=== PATIENT | male | born 1955 | race African-American/Black ===

== ENCOUNTER → 2020-07-04 | Outpatient (CLI) | payer MEDICARE ==
[2020-07-04 10:49] LABS: ANION GAP 9 (6-14); BLOOD UREA NITROGEN 16 mg/dL (8-26); CALCIUM 9.7 mg/dL (8.5-10.1); CARBON DIOXIDE 31 mmol/L (21-32); CHLORIDE 101 mmol/L (98-107); CREATININE 1.1 mg/dL (0.7-1.3); DIG 1.7 ng/dL (0.9-2.0); GFR 81.3; GLUCOSE 166 mg/dL (70-99); POTASSIUM 4.8 mmol/L (3.5-5.1); SODIUM 141 mmol/L (136-145)
== END ==
LOC: LAB 08:40
PROVIDERS: ATTEND Internal Medicine Cardiovascular Disease
DX: I48.21 Permanent atrial fibrillation (principal)
CPT/HCPCS: 36415; 80048; 80162

== ENCOUNTER → 2020-07-04 | Outpatient (CLI) | payer MEDICARE ==
[2020-07-04 10:57] LABS: ALBUMIN 3.7 g/dL (3.4-5.0); ALBUMIN/GLOBULIN RATIO 0.8 (1.0-1.7); CALCIUM 9.4 mg/dL (8.5-10.1); CREATININE 1.1 mg/dL (0.7-1.3); GFR 81.3; TOTAL BILIRUBIN 0.6 mg/dL (0.2-1.0); TOTAL PROTEIN 8.1 g/dL (6.4-8.2)
[2020-07-04 11:01] LABS: BASO % 1 % (0-3); EOS # 0.2 x10^3/uL (0.0-0.7); EOS % 3 % (0-3); LYMPH # 1.4 x10^3/uL (1.0-4.8); LYMPH % 21 % (24-48); MEAN CORPUSCULAR HEMOGLOBIN 32 pg (25-35); MEAN CORPUSCULAR HGB CONC 32 g/dL (31-37); MEAN CORPUSCULAR VOLUME 99 fL (79-100); MONO # 0.7 x10^3/uL (0.0-1.1); MONO % 10 % (0-9); NEUT # 4.3 x10^3uL (1.8-7.7); NEUT % 65 % (31-73); PLATELET COUNT 267 x10^3/uL (140-400); RED BLOOD COUNT 4.46 x10^6/uL (4.30-5.70); RED CELL DISTRIBUTION WIDTH 17.7 % (11.5-14.5); WHITE BLOOD COUNT 6.6 x10^3/uL (4.0-11.0)
[2020-07-04 11:08] LABS: BACTERIA,URINE 0 /HPF (0-FEW); BILIRUBIN,URINE NEG (NEG); CLARITY,URINE CLEAR; COLOR,URINE YELLOW; GLUCOSE,URINE NEG (NEG); NITRITE,URINE NEG (NEG); RBC,URINE 0 /HPF (0-2); SQUAMOUS EPITHELIAL CELL,UR MANY /LPF; UROBILINOGEN,URINE 0.2 mg/dL (0.2 mg/dL); WBC,URINE OCC /HPF (0-4)
[2020-07-05 00:15] LABS: HEMOGLOBIN A1C 5.7 % (4.8-5.6)
[2020-07-05 14:23] LABS: FREE PSA/PSA RATIO 16.7 % (.); PSA FREE 0.1 ng/mL; PSA TOTAL 0.6 ng/mL (0.0-4.0)
== END ==
LOC: LAB 08:34
PROVIDERS: ATTEND Family Medicine
DX: I48.0 Paroxysmal atrial fibrillation (principal)
CPT/HCPCS: 36415; 80053; 80061; 81001; 82553; 83036; 83880; 84153; 84154; 84484; 85025; 85379

== ENCOUNTER 2020-08-11 09:39 | Inpatient (IN) | payer MEDICARE ==
[~2020-08-11] VITALS: Ht 188 cm; Wt 159.3 kg
--- NOTE | 2020-08-11 10:19 | EKG ---
[address] [address] Test Date: 2020-08-11 Test Time: 10:03:53 Pat Name: ENRIQUE ISAAC Department: Room: Gender: M [employer]: : [id number] Requested By: IFEANYI HERNANDEZ Order Number: [id number] Reading MD: Measurements Intervals [place] Rate: 81 P: MO: QRS: -19 QRSD: 62 T: 24 QT: 376 QTc: 437 Interpretive Statements IRREGULAR RHYTHM, NO P-WAVE FOUND LOW LIMB LEAD VOLTAGE NO SPECIFIC ECG ABNORMALITIES RI6.02 No previous ECG available for comparison
--- NOTE | 2020-08-11 10:23 | PHYS DOC ---
Past History Past Medical History: A-Fib, Anxiety, CAD, CHF, Depression, Diabetes, DVT, High Cholesterol, Heart Disease, Hypertension Additional Past Medical Histor: PE Past Surgical History: Other Additional Past Surgical Histo: Thrombectomy Alcohol Use: Occasionally General Adult EDM: Chief Complaint: MULTIPLE COMPLAINTS HPI: HPI: 64-year-old male presents with shortness of breath and increased swelling. Patient has CHF at baseline for which he takes 2 different diuretics. He has had an increase in his lower leg swelling over the last several days. He also has gained about 25 pounds. Patient tells me that he is short of breath especially with activity. His legs are so edematous its difficult to get up and around. He denies chest pain or diaphoresis. He has been taking his medications. He stopped his digoxin and restarted it 2 weeks ago. He thinks he started to have increased swelling after he stopped the digoxin but it has not gone down since restarting. It is also gotten worse. He has no other complaints this time. Review of Systems: Review of Systems: Constitutional: Denies fever or chills Eyes: Denies change in visual acuity HENT: Denies nasal congestion or sore throat Respiratory: shortness of breath Cardiovascular: Denies chest pain or edema GI: Denies abdominal pain, nausea, vomiting, bloody stools or diarrhea : Denies dysuria Musculoskeletal: Denies back pain or joint pain Integument: Denies rash Neurologic: Denies headache, focal weakness or sensory changes Endocrine: Denies polyuria or polydipsia Lymphatic: Denies swollen glands Psychiatric: Denies depression or anxiety Allergies: Allergies: Allergies Coded Allergies Type Severity Reaction Last Updated Verified No Known Drug Allergies 08/11/20 No Physical Exam: PE: Constitutional: Well developed, well nourished, morbidly obese, no acute distress, non-toxic appearance. [] HENT: Normocephalic, atraumatic, bilateral external ears normal, oropharynx moist, no oral exudates, nose normal. [] Eyes: PERRLA, EOMI, conjunctiva normal, no discharge. [] Neck: Normal range of motion, no tenderness, supple, no stridor. [] Cardiovascular:Heart rate regular rhythm, no murmur [] Lungs & Thorax: Bilateral breath sounds clear to auscultation [] Abdomen: Bowel sounds normal, soft, no tenderness, no masses, no pulsatile masses. [] Skin: Warm, dry, no erythema, no rash. [] Back: No tenderness, no CVA tenderness. [] Extremities: No tenderness, no cyanosis, no clubbing, ROM intact, 4+ pitting edema the bilateral lower extremities to the waist. [] Neurologic: Alert and oriented X 3, normal motor function, normal sensory function, no focal deficits noted. [] Psychologic: Affect normal, judgement normal, mood normal. [] Current Patient Data: Vital Signs: Vital Signs Date Time Temp Pulse Resp B/P (MAP) Pulse Ox O2 Delivery O2 Flow Rate FiO2 08/11/20 09:45 97.9 83 27 127/64 (85) 96 Room Air EKG: EKG: [] Radiology/Procedures: Radiology/Procedures: [] Impressions: EXAM: AP View of the chest DATE: 08/11/2020 10:25 AM INDICATION: Reason: SOB / Spl. Instructions: / History: COMPARISON: No Prior FINDINGS: Mild cardiomegaly. Patchy opacities right lung base. Trace left pleural effusion . No pneumothorax. IMPRESSION: 1. Patchy opacities right lung base may represent atelectasis. Developing consolidation is not entirely excluded. 2. Mild cardiomegaly. Electronically signed by: Toño Lester MD (08/11/2020 10:45 AM) [facility] DICTATED AND SIGNED BY: TOÑO LESTER MD DATE: 08/11/20 1044 CC: IFEANYI HERNANDEZ DO; CORY JIN MD ~MTH0 0 Heart Score: C/O Chest Pain: N/A Risk Factors: Risk Factors: DM, Current or recent (<one month) smoker, HTN, HLP, family history of CAD, obesity. Risk Scores: Score 0 - 3: 2.5% MACE over next 6 weeks - Discharge Home Score 4 - 6: 20.3% MACE over next 6 weeks - Admit for Clinical Observation Score 7 - 10: 72.7% MACE over next 6 weeks - Early Invasive Strategies Course & Med Decision Making: Course & Med Decision Making Pertinent Labs and Imaging studies reviewed. (See chart for details) The patient's EKG is unremarkable. He does have A. fib rate controlled. His labs are unremarkable except for an elevated proBNP. His troponin is negative. His chest x-ray shows some atelectasis but cannot rule out early pneumonia. Based on my exam the patient has significant fluid overload. I have ordered 1 mg of Bumex IV. I will admit him to the hospital for diuresis and further management of his shortness of breath. I spoke with Dr. Jin and he has accepted the patient for admission. [] Dragon Disclaimer: Dragon Disclaimer: This electronic medical record was generated, in whole or in part, using a voice recognition dictation system. Departure Departure: Impression: Primary Impression: CHF exacerbation Qualified Codes: I50.23 - Acute on chronic systolic (congestive) heart f ailure Disposition: ADMITTED INPATIENT Condition: STABLE Referrals: CORY JIN MD (PCP) IFEANYI HERNANDEZ DO Aug 11, 2020 10:23
[2020-08-11] MEDS ORDERED: BUMETANIDE 1 MG/4 ML VIAL. IVP STA (10:38)
--- NOTE | 2020-08-11 10:47 | RAD ---
EXAM: AP View of the chest DATE: 08/11/2020 10:25 AM INDICATION: Reason: SOB / Spl. Instructions: / History: COMPARISON: No Prior FINDINGS: Mild cardiomegaly. Patchy opacities right lung base. Trace left pleural effusion. No pneumothorax. IMPRESSION: 1. Patchy opacities right lung base may represent atelectasis. Developing consolidation is not entir cleopatra excluded. 2. Mild cardiomegaly. Electronically signed by: Toño Lester MD (08/11/2020 10:45 AM) MARISSA
[2020-08-11 10:53] LABS: BASO % 0 % (0-3); EOS # 0.2 x10^3/uL (0.0-0.7); EOS % 3 % (0-3); HEMATOCRIT 39.4 % (39.0-53.0); HEMOGLOBIN 12.7 g/dL (13.0-17.5); LYMPH # 1.2 x10^3/uL (1.0-4.8); LYMPH % 13 % (24-48); MEAN CORPUSCULAR HEMOGLOBIN 31 pg (25-35); MEAN CORPUSCULAR HGB CONC 32 g/dL (31-37); MEAN CORPUSCULAR VOLUME 97 fL (79-100); MONO # 0.8 x10^3/uL (0.0-1.1); MONO % 8 % (0-9); NEUT # 6.9 x10^3uL (1.8-7.7); NEUT % 76 % (31-73); PLATELET COUNT 221 x10^3/uL (140-400); RED BLOOD COUNT 4.07 x10^6/uL (4.30-5.70); RED CELL DISTRIBUTION WIDTH 17.3 % (11.5-14.5); WHITE BLOOD COUNT 9.1 x10^3/uL (4.0-11.0)
[2020-08-11 10:55] LABS: CALCIUM 8.7 mg/dL (8.5-10.1); CREATININE 1.1 mg/dL (0.7-1.3); GFR 81.3; POTASSIUM 5.1 mmol/L (3.5-5.1)
[2020-08-11 11:01] LABS: ALBUMIN 3.2 g/dL (3.4-5.0); ALBUMIN/GLOBULIN RATIO 0.8 (1.0-1.7); TOTAL BILIRUBIN 0.5 mg/dL (0.2-1.0); TOTAL PROTEIN 7.2 g/dL (6.4-8.2)
[2020-08-11] MEDS ORDERED: ONDANSETRON PF 4 MG/2 ML VIAL. IVP PRN (11:45)
[2020-08-11] MEDS ORDERED: HYDROmorphone PF 1 MG/ML DISP.SYRIN IV PRN (11:45)
[2020-08-11] MEDS ORDERED: TRAZ-125 PO (15:34)
[2020-08-11] MEDS ORDERED: SITA50TA PO (15:34)
[2020-08-11] MEDS ORDERED: LISI-517 PO (15:34)
[2020-08-11] MEDS ORDERED: METO50TA6 PO (15:34)
[2020-08-11] MEDS ORDERED: DIGO125T17 PO (15:34)
[2020-08-11] MEDS ORDERED: SPIR25TA5 PO (15:34)
[2020-08-11] MEDS ORDERED: DABI150C PO (15:34)
[2020-08-11] MEDS ORDERED: METF500T16 PO (15:34)
[2020-08-11] MEDS ORDERED: CARV25TA2 PO (15:34)
[2020-08-11] MEDS ORDERED: FURO40TA4 PO (15:34)
[2020-08-11] MEDS ORDERED: PRAV40TA2 PO (15:34)
[2020-08-11] MEDS: FUROSEMIDE 20 MG/2 ML VIAL IVP SCH (17:38)
[2020-08-11] MEDS: metFORMIN 500 MG TABLET PO SCH (17:38)
[2020-08-11 19:00] VITALS: BP 120/84
[2020-08-11] MEDS: METOPROLOL TART IMMED RELEASE 50 MG TABLET PO SCH (21:41)
[2020-08-11] MEDS: DABIGATRAN ETEXILATE 150 MG CAPSULE. PO SCH (21:41)
[2020-08-11] MEDS: ATORVASTATIN CALCIUM 10 MG TABLET. PO SCH (21:42)
[2020-08-11] MEDS: SPIRONOLACTONE 25 MG TABLET PO SCH (21:42)
[2020-08-11] MEDS: traZODone 100 MG TABLET. PO SCH (21:42)
[2020-08-11 23:26] LABS: BILIRUBIN,URINE NEG (NEG); CLARITY,URINE CLEAR; COLOR,URINE YELLOW; GLUCOSE,URINE NEG (NEG)
[2020-08-11 23:27] LABS: BACTERIA,URINE 0 /HPF (0-FEW); NITRITE,URINE NEG (NEG); RBC,URINE 0 /HPF (0-2); SQUAMOUS EPITHELIAL CELL,UR OCC /LPF; UROBILINOGEN,URINE 0.2 mg/dL (0.2 mg/dL); WBC,URINE 0 /HPF (0-4)
[2020-08-11 23:31] VITALS: BP 134/80
[2020-08-12 05:53] VITALS: BP 105/67
[2020-08-12] MEDS: DABIGATRAN ETEXILATE 150 MG CAPSULE. PO SCH ×2 (09:11→20:58)
[2020-08-12] MEDS: METOPROLOL TART IMMED RELEASE 50 MG TABLET PO SCH ×2 (09:11→20:58)
[2020-08-12] MEDS: metFORMIN 500 MG TABLET PO SCH ×2 (09:13→17:22)
[2020-08-12] MEDS: DIGOXIN 125 MCG TABLET PO SCH (09:13)
[2020-08-12] MEDS: LINAGLIPTIN 5 MG TABLET PO SCH (09:14)
[2020-08-12] MEDS: SPIRONOLACTONE 25 MG TABLET PO SCH ×2 (09:14→20:58)
[2020-08-12] MEDS: LISINOPRIL 5 MG TABLET. PO SCH (09:16)
[2020-08-12] MEDS: FUROSEMIDE 20 MG/2 ML VIAL IVP SCH (09:17)
[2020-08-12] MEDS ORDERED: ACETAMINOPHEN/CODEINE 300/30MG TABLET PO PRN (10:45)
[2020-08-12 11:47] VITALS: BP 108/76
[2020-08-12 13:05] LABS: CALCIUM 8.9 mg/dL (8.5-10.1); CREATININE 1.1 mg/dL (0.7-1.3); GFR 81.3; POTASSIUM 4.3 mmol/L (3.5-5.1)
[2020-08-12] MEDS: FUROSEMIDE 40 MG/4 ML VIAL IVP SCH (14:37)
[2020-08-12] MEDS ORDERED: HYDROcodone/APAP 5/325MG 1 TAB TABLET PO PRN ×2 (15:15→15:30)
[2020-08-12] MEDS: HYDROcodone/APAP 5/325MG 1 TAB TABLET PO PRN (16:14)
[2020-08-12 16:22] VITALS: BP 136/85
[2020-08-12] MEDS: CARVEDILOL 12.5 MG TABLET PO SCH (18:39)
[2020-08-12 19:25] VITALS: BP 108/75
[2020-08-12] MEDS: traZODone 100 MG TABLET. PO SCH (20:58)
[2020-08-12] MEDS: ATORVASTATIN CALCIUM 10 MG TABLET. PO SCH (20:58)
[2020-08-13 05:45] VITALS: BP 105/73
[2020-08-13 06:10] LABS: HEMOGLOBIN A1C 6.1 % (4.8-5.6)
[2020-08-13 06:50] LABS: CALCIUM 8.9 mg/dL (8.5-10.1); GFR 90.7; POTASSIUM 3.8 mmol/L (3.5-5.1)
--- NOTE | 2020-08-13 09:28 | PDOC2 ---
CARDIAC CONSULT DATE OF CONSULT DOS: DATE: 08/13/20 TIME: 09:26 REASON FOR CONSULT Reason for Consult CHF REFERRING PHYSICIAN Referring Physician Dr. Ahumada SOURCE Source: Chart review, Patient HPI History of Present Illness This is a 64 yo male who presented secondary to shortness of breath and increased edema. Patient reports LE have been swollen for the last month. Follows with [facility]. Reports digoxin was discontinued last month and then has has progressive fluid retention since that point. Has history of chronic AFIB. Denies any palpitations. Shortness of breath has improved, but LE edema has persists. Requesting different diuretic as her does not feel Lasix has been effective. He denies any chest pain, palpitations, dizziness, diaphoresis, or nausea/vomiting. PAST MEDICAL HISTORY Cardiovascular: AFIB, CHF, HTN, hyperipidemia Heme/Onc: Other (DVT, PE) Psych: Anxiety, Depression Endocrine: Diabetes PAST SURGICAL HISTORY Past Surgical History: No pertinent history FAMILY HISTORY Family History: Hypertension SOCIAL HISTORY Smoke: No ALCOHOL: none Drugs: None Lives: with Family CURRENT MEDICATIONS Current Medications Current Medications Bumetanide (Bumex) 1 mg 1X STAT IVP Last administered on 08/11/20at 10:56; Start 08/11/20 at 10:38; Stop 08/11/20 at 10:43; Status DC Ondansetron HCl (Zofran) 4 mg PRN Q4HRS PRN IVP NAUSEA/VOMITING; Start 08/11/20 at 11:45; Stop 08/12/20 at 11:44; Status DC Hydromorphone HCl (Dilaudid) 0.5 mg PRN Q2HR PRN IV PAIN; Start 08/11/20 at 11:45; Stop 08/12/20 at 11:44; Status UNV Dabigatran (Pradaxa) 150 mg BID PO Last administered on 08/12/20at 20:58; Start 08/11/20 at 21:00 Digoxin (Lanoxin) 125 mcg DAILY PO Last administered on 08/12/20at 09:13; Start 08/12/20 at 09:00 Lisinopril (Prinivil) 5 mg DAILY PO Last administered on 08/12/20at 09:16; Start 08/12/20 at 09:00 Metformin HCl (Glucophage) 500 mg BIDWMEALS PO Last administered on 08/12/20at 17:22; Start 08/11/20 at 18:00 Metoprolol Tartrate (Lopressor) 50 mg BID PO Last administered on 08/12/20at 20:58; Start 08/11/20 at 21:00 Spironolactone (Aldactone) 25 mg BID PO Last administered on 08/12/20at 20:58; Start 08/11/20 at 21:00 Trazodone HCl (Desyrel) 100 mg QHS PO Last administered on 08/12/20at 20:58; Start 08/11/20 at 21:00 Carvedilol (Coreg) 25 mg BIDWMEALS PO Last administered on 08/12/20at 18:39; Start 08/12/20 at 18:00 Atorvastatin Calcium (Lipitor) 10 mg QHS PO Last administered on 08/12/20at 20:58; Start 08/11/20 at 21:00 Linagliptin (Tradjenta) 5 mg DAILY PO Last administered on 08/12/20at 09:14; Start 08/12/20 at 09:00 Furosemide (Lasix) 20 mg BID92 IVP Last administered on 08/12/20at 09:17; Start 08/11/20 at 17:30; Stop 08/12/20 at 14:00; Status DC Acetaminophen/ Codeine Phosphate (Tylenol #3) 2 tab PRN QID PRN PO MILD PAIN 1- 3 Last administered on 08/12/20at 11:25; Start 08/12/20 at 10:45 Furosemide (Lasix) 40 mg BID92 IVP Last administered on 08/12/20at 14:37; Start 08/12/20 at 14:00 Acetaminophen/ Hydrocodone Bitart (Lortab 5/325) 1-2 tabs for pain PRN Q6HRS PRN PO MODERATE TO PERSISTANT PAIN; Start 08/12/20 at 15:15; Stop 08/12/20 at 15:22; Status DC Acetaminophen/ Hydrocodone Bitart (Lortab 5/325) 1 tab PRN Q6HRS PRN PO MODERATE TO PERSISTANT PAIN Last administered on 08/12/20at 16:14; Start 08/12/20 at 15:22 Acetaminophen/ Hydrocodone Bitart (Lortab 5/325) 2 tab PRN Q6HRS PRN PO MOD TO PERSISTANT PAIN; Start 08/12/20 at 15:30 Active Scripts Active Reported Pradaxa (Dabigatran Etexilate Mesylate) 150 Mg Capsule 1 Cap PO BID Januvia (Sitagliptin Phosphate) 50 Mg Tablet 1 Tab PO DAILY Digoxin 125 Mcg Tablet 125 Mcg PO DAILY Lisinopril 5 Mg Tablet 1 Tab PO DAILY Metoprolol Tartrate 50 Mg Tablet 1 Tab PO BID Pravastatin Sodium 40 Mg Tablet 1 Tab PO QHS Metformin Hcl 500 Mg Tablet 1 Tab PO BID Trazodone Hcl 100 Mg Tablet 1 Tab PO QHS Furosemide 40 Mg Tablet 1 Tab PO BID92 Carvedilol 25 Mg Tablet 25 Mg PO BIDWMEALS Spironolactone 25 Mg Tablet 1 Tab PO BID ALLERGIES Allergies: Coded Allergies: No Known Drug Allergies (Unverified , 08/11/20) ROS Review of Systems 14 point ROS conducted with pertinent positives noted above in hPI PHYSICAL EXAM General: Alert, Oriented X3, Cooperative HEENT: Atraumatic Lungs: Other (diminished bases) Heart: Other (IRRR; tele AFIB, rate 110) Abdomen: Soft, Other (obese ) Extremities: Other (2-3+ bilateral LE edema ) Neuro: Normal speech, Sensation intact Psych/Mental Status: Mental status NL, Mood NL MUSCULOSKELETAL: Osteoarthritic changes both hands VITALS Vital Signs Vital Signs Date Time Temp Pulse Resp B/P (MAP) Pulse Ox O2 Delivery O2 Flow Rate FiO2 08/13/20 05:45 97.7 83 18 105/73 (84) 93 Room Air LABS LABS Laboratory Tests Test 08/11/20 10:30 08/11/20 15:23 08/11/20 18:11 08/11/20 22:30 White Blood Count 9.1 x10^3/uL (4.0-11.0) Red Blood Count 4.07 x10^6/uL (4.30-5.70) Hemoglobin 12.7 g/dL (13.0-17.5) Hematocrit 39.4 % (39.0-53.0) Mean Corpuscular Volume 97 fL (79-100) Mean Corpuscular Hemoglobin 31 pg (25-35) Mean Corpuscular Hemoglobin Concent 32 g/dL (31-37) Red Cell Distribution Width 17.3 % (11.5-14.5) Platelet Count 221 x10^3/uL (140-400) Neutrophils (%) (Auto) 76 % (31-73) Lymphocytes (%) (Auto) 13 % (24-48) Monocytes (%) (Auto) 8 % (0-9) Eosinophils (%) (Auto) 3 % (0-3) Basophils (%) (Auto) 0 % (0-3) Neutrophils # (Auto) 6.9 x10^3uL (1.8-7.7) Lymphocytes # (Auto) 1.2 x10^3/uL (1.0-4.8) Monocytes # (Auto) 0.8 x10^3/uL (0.0-1.1) Eosinophils # (Auto) 0.2 x10^3/uL (0.0-0.7) Basophils # (Auto) 0.0 x10^3/uL (0.0-0.2) Sodium Level 140 mmol/L (136-145) Potassium Level 5.1 mmol/L (3.5-5.1) Chloride Level 104 mmol/L (98-107) Carbon Dioxide Level 31 mmol/L (21-32) Anion Gap 5 (6-14) Blood Urea Nitrogen 12 mg/dL (8-26) Creatinine 1.1 mg/dL (0.7-1.3) Estimated GFR (Cockcroft-Gault) 81.3 BUN/Creatinine Ratio 11 (6-20) Glucose Level 161 mg/dL (70-99) Hemoglobin A1c 6.1 % (4.8-5.6) Calcium Level 8.7 mg/dL (8.5-10.1) Total Bilirubin 0.5 mg/dL (0.2-1.0) Aspartate Amino Transf (AST/SGOT) 18 U/L (15-37) Alanine Aminotransferase (ALT/SGPT) 34 U/L (16-63) Alkaline Phosphatase 68 U/L (46-116) Troponin I Quantitative < 0.017 ng/mL (0-0.055) 0.017 ng/mL (0-0.055) 0.022 ng/mL (0-0.055) BR-Rcp-Q-Type Natriuretic Peptide 2318 pg/mL (0-124) Total Protein 7.2 g/dL (6.4-8.2) Albumin 3.2 g/dL (3.4-5.0) Albumin/Globulin Ratio 0.8 (1.0-1.7) Urine Collection Type Unknown Urine Color Yellow Urine Clarity Clear Urine pH 5.5 Urine Specific [place] 1.010 Urine Protein Neg (NEG-TRACE) Urine Glucose (UA) Neg mg/dL (NEG) Urine Ketones (Stick) Neg mg/dL (NEG) Urine Blood Neg (NEG) Urine Nitrite Neg (NEG) Urine Bilirubin Neg (NEG) Urine Urobilinogen Dipstick 0.2 mg/dL (0.2 mg/dL) Urine Leukocyte Esterase Neg (NEG) Urine RBC 0 /HPF (0-2) Urine WBC 0 /HPF (0-4) Urine Squamous Epithelial Cells Occ /LPF Urine Bacteria 0 /HPF (0-FEW) Test 08/12/20 07:15 08/13/20 05:40 Sodium Level 141 mmol/L (136-145) 139 mmol/L (136-145) Potassium Level 4.3 mmol/L (3.5-5.1) 3.8 mmol/L (3.5-5.1) Chloride Level 101 mmol/L (98-107) 101 mmol/L (98-107) Carbon Dioxide Level 31 mmol/L (21-32) 32 mmol/L (21-32) Anion Gap 9 (6-14) 6 (6-14) Blood Urea Nitrogen 11 mg/dL (8-26) 10 mg/dL (8-26) Creatinine 1.1 mg/dL (0.7-1.3) 1.0 mg/dL (0.7-1.3) Estimated GFR (Cockcroft-Gault) 81.3 90.7 Glucose Level 114 mg/dL (70-99) 174 mg/dL (70-99) Calcium Level 8.9 mg/dL (8.5-10.1) 8.9 mg/dL (8.5-10.1) ECHOCARDIOGRAM Echocardiogram 12/27/19 - 2D + DOPPLER ECHO Interpretation Summary The left ventricular size is normal. Concentric remodeling. The left ventricular systolic function is normal. The ejection fraction by Reddy's biplane method is 62%. There are no segmental wall motion abnormalities The right ventricular size is normal. The right ventricular systolic function is normal. Normal biatrial size. No significant valve disease. Estimated Peak Systolic PA Pressure 26 mmHg No pericardial effusion. No prior for comparison. STRESS TEST Stress Test 12/06/19 - Procedure: D-SPECT MULTI GATED THALLIUM REGADENOSON MPI STRESS TEST SUMMARY/OPINION: This study is normal with no evidence of significant myocardial ischemia. Left ventricular systolic function is normal. There are no high risk prognostic indicators present. The pharmacologic ECG portion of the study is negative for ischemia. There are no prior studies available for comparison. In aggregate the current study is low risk in regards to predicted annual cardiovascular mortality rate. ASSESSMENT/PLAN Assessment/Plan 1. Acute on chronic diastolic CHF; Echo 01/12 with preserved LV systolic function S/p IV diuresis. Requesting alternative to Lasix as he does not feel th is is effective 2. H/o NICM with LVEF previously 25%. LVEF recovered per echo 01/12 as noted above. Follows with Dr.Bhagat SUAD 3. Permanent AFIB; OAC with Pradaxa. Digoxin resumed. Rate remains intermittently elevated. 4. Hypertension; controlled 5. Hyperlipidemia 6. Diabetes, II 7. H/o DVT/PE; chronic OAC 8. Obesity Recommendations Daily weights 2Gm Na diet, 2000cc FR Will try IV Bumex for more aggressive diuresis Convert Coreg to Toprol for better rate control as RVR may be contributing to ac gambell CHF, fluid retention Supportive care ISAURO ORLANDO APRN Aug 13, 2020 09:28
[2020-08-13] MEDS: LINAGLIPTIN 5 MG TABLET PO SCH (09:32)
[2020-08-13] MEDS: metFORMIN 500 MG TABLET PO SCH ×2 (09:32→16:30)
[2020-08-13] MEDS: LISINOPRIL 5 MG TABLET. PO SCH (09:32)
[2020-08-13] MEDS: DABIGATRAN ETEXILATE 150 MG CAPSULE. PO SCH ×2 (09:32→21:50)
[2020-08-13] MEDS: DIGOXIN 125 MCG TABLET PO SCH (09:32)
[2020-08-13] MEDS: METOPROLOL TART IMMED RELEASE 50 MG TABLET PO SCH (09:33)
[2020-08-13] MEDS: SPIRONOLACTONE 25 MG TABLET PO SCH ×2 (09:33→21:50)
[2020-08-13] MEDS: CARVEDILOL 12.5 MG TABLET PO SCH (09:34)
[2020-08-13] MEDS: FUROSEMIDE 40 MG/4 ML VIAL IVP SCH (09:36)
[2020-08-13] MEDS: METOPROLOL SUCC 24HR ER 50 MG TAB.ER.24H. PO SCH (10:00)
[2020-08-13 10:44] VITALS: BP 121/79
[2020-08-13 14:42] VITALS: BP 105/70
[2020-08-13] MEDS: metOLazone 5 MG TABLET PO SCH (14:46)
[2020-08-13] MEDS: BUMETANIDE 1 MG/4 ML VIAL. IVP SCH (14:46)
[2020-08-13 20:05] VITALS: BP 115/80
[2020-08-13] MEDS: ATORVASTATIN CALCIUM 10 MG TABLET. PO SCH (21:50)
[2020-08-13] MEDS: traZODone 100 MG TABLET. PO SCH (21:50)
[2020-08-13] MEDS: HYDROcodone/APAP 5/325MG 1 TAB TABLET PO PRN (21:54)
[2020-08-13 22:29] VITALS: BP 119/75
--- NOTE | 2020-08-14 01:15 | PN ---
SUBJECTIVE: A 64-year-old gentleman admitted with acute on top of chronic diastolic heart failure. The patient has been diuresed. He is feeling somewhat better, able to breathe a little bit easier. The patient denies any chest pain. OBJECTIVE: GENERAL: The patient is otherwise alert and oriented. Speech fluent and spontaneous. LUNGS: Shows some basic very faint rales in the bases, but markedly improved. CARDIOVASCULAR: Basically stable. Cardiology has seen the patient for his AFib, which has been chronic in his heart failure. ABDOMEN: Protuberant. EXTREMITIES: Still show about +2 pitting edema. Pulses noted distally. NEUROLOGIC: He is sedated, stable there. LABORATORY DATA: The patient's electrolytes were all within normal limits. The patient's urine came back was stable. D-dimer was negative. Cardiology made timely suggestions. IMPRESSION: Acute on top of chronic diastolic heart failure, morbid obesity, hyperglycemia, moderate protein malnutrition. PLAN: Continue with diuresis, fluid restriction, and low sodium diet. HAJA/QUANG DR: Vincent TID: [id number]
[2020-08-14 05:45] VITALS: BP 107/74
[2020-08-14] MEDS: metOLazone 5 MG TABLET PO SCH ×2 (08:19→14:05)
[2020-08-14] MEDS: metFORMIN 500 MG TABLET PO SCH ×2 (08:19→17:19)
--- NOTE | 2020-08-14 08:47 | PDOC ---
CARDIO Progress Notes Date & Time Date of Service DATE: 08/14/20 TIME: 08:46 Time of Evaluation 08:46 Subjective Notes increase UOP yesterday and overnight. LE edema better. Vitals Vitals Vital Signs Date Time Temp Pulse Resp B/P (MAP) Pulse Ox O2 Delivery O2 Flow Rate FiO2 08/14/20 05:45 97.7 97 18 107/74 (85) 92 Room Air Weight Weight [ ] Input and Output I.O. Intake and Output 08/14/20 07:00 Intake Total 1420 ml Output Total 300 ml Balance 1120 ml Intake Oral 1420 ml Output Urine Total 300 ml # Voids 2 Laboratory Labs Laboratory Tests Test 08/13/20 05:40 Sodium Level 139 mmol/L (136-145) Potassium Level 3.8 mmol/L (3.5-5.1) Chloride Level 101 mmol/L (98-107) Carbon Dioxide Level 32 mmol/L (21-32) Anion Gap 6 (6-14) Blood Urea Nitrogen 10 mg/dL (8-26) Creatinine 1.0 mg/dL (0.7-1.3) Estimated GFR (Cockcroft-Gault) 90.7 Glucose Level 174 mg/dL (70-99) Calcium Level 8.9 mg/dL (8.5-10.1) Physical Exams HEENT: Neck Supple W Full Motion Chest: Symmetric Lungs: Clear to Auscultation, Other (diminished bases) Abdomen: Soft N/T, Other (obese ) Extremities: Other (bilateral LE edema ) Neurology: alert, oriented, follow commands Assessment Assessment 1. Acute on chronic diastolic CHF; Echo 01/12 with preserved LV systolic function. ^ UOP with combination of Bumex and metolazone 2. H/o NICM with LVEF previously 25%. LVEF recovered per echo 01/12 as noted above. Follows with Dr.Bhagat SUAD 3. Permanent AFIB; OAC with Pradaxa. Digoxin resumed. Rate intermittently elevated. 4. Hypertension; controlled 5. Hyperlipidemia 6. Diabetes, II 7. H/o DVT/PE; chronic OAC 8. Obesity Recommendations 2Gm Na diet, 2000cc FR Daily weights, accurate I and O- d/w RN Ongoing diuresis Continue Toprol for rate control. Will increase for better rate control Supportive care ISAURO ORLANDO APRN Aug 14, 2020 08:47
[2020-08-14] MEDS ORDERED: metOLazone 5 MG TABLET PO ONE (09:30)
[2020-08-14] MEDS: DIGOXIN 125 MCG TABLET PO SCH (09:38)
[2020-08-14] MEDS: LISINOPRIL 5 MG TABLET. PO SCH (09:38)
[2020-08-14] MEDS: LINAGLIPTIN 5 MG TABLET PO SCH (09:38)
[2020-08-14] MEDS: DABIGATRAN ETEXILATE 150 MG CAPSULE. PO SCH ×2 (09:39→21:22)
[2020-08-14] MEDS: METOPROLOL SUCC 24HR ER 50 MG TAB.ER.24H. PO SCH (09:39)
[2020-08-14] MEDS: SPIRONOLACTONE 25 MG TABLET PO SCH ×2 (09:39→21:22)
[2020-08-14] MEDS: BUMETANIDE 1 MG/4 ML VIAL. IVP SCH ×2 (09:40→14:05)
[2020-08-14] MEDS ORDERED: METOPROLOL TARTRATE 5 MG/5 ML VIAL. IV ONE (10:30)
[2020-08-14 10:34] VITALS: BP 131/82
[2020-08-14 15:00] VITALS: BP 115/77
[2020-08-14] MEDS: HYDROcodone/APAP 5/325MG 1 TAB TABLET PO PRN (17:37)
[2020-08-14 17:39] LABS: CALCIUM 9.2 mg/dL (8.5-10.1); GFR 90.7; POTASSIUM 4.2 mmol/L (3.5-5.1)
[2020-08-14 19:38] VITALS: BP 107/71
[2020-08-14] MEDS: ATORVASTATIN CALCIUM 10 MG TABLET. PO SCH (21:22)
[2020-08-14] MEDS: traZODone 100 MG TABLET. PO SCH (21:22)
[2020-08-14 23:29] VITALS: BP 115/80
--- NOTE | 2020-08-15 04:59 | PN ---
SUBJECTIVE: A 64-year-old gentleman in with congestive heart failure. Still needs consistent and considerably more diuresis with IV medications. The patient's metolazone has been increased and he continues to be monitored, his left ejection fraction is only 25%. The patient is followed normally by ____; otherwise the patient continued to be diuresed. OBJECTIVE: VITAL SIGNS: Blood pressure 120/70, respiratory rate 20, pulse 100, afebrile, 96% on room air. GENERAL: The patient is alert and oriented. LUNGS: Diminished throughout, poor movement of air. CARDIOVASCULAR: rhythm. ABDOMEN: Protuberant. EXTREMITIES: +2-3 pitting edema. ASSESSMENT AND PLAN: The patient is diuresing. We will increase his diuresis and cut down . Continue to monitor his fluid restriction and make further evaluation on him as indicated. HAJA/AKIKO/JARVIS DR: Vincent TID: [id number]
[2020-08-15 07:00] VITALS: BP 123/72
[2020-08-15] MEDS: metOLazone 5 MG TABLET PO SCH (08:07)
[2020-08-15] MEDS: metFORMIN 500 MG TABLET PO SCH (08:07)
[2020-08-15] MEDS: SPIRONOLACTONE 25 MG TABLET PO SCH (08:07)
[2020-08-15] MEDS: BUMETANIDE 1 MG/4 ML VIAL. IVP SCH (08:07)
[2020-08-15 08:08] VITALS: BP 123/72
[2020-08-15] MEDS: LISINOPRIL 5 MG TABLET. PO SCH (08:08)
[2020-08-15] MEDS: DIGOXIN 125 MCG TABLET PO SCH (08:08)
[2020-08-15] MEDS: LINAGLIPTIN 5 MG TABLET PO SCH (08:08)
[2020-08-15] MEDS: DABIGATRAN ETEXILATE 150 MG CAPSULE. PO SCH (08:08)
--- NOTE | 2020-08-15 08:42 | PDOC ---
CARDIO Progress Notes Date & Time Date of Service DATE: 08/15/20 TIME: 08:40 Time of Evaluation 08:40 Subjective Notes Urinated significant amount. LE edema better. Vitals Vitals Vital Signs Date Time Temp Pulse Resp B/P (MAP) Pulse Ox O2 Delivery O2 Flow Rate FiO2 08/15/20 08:08 87 123/72 08/15/20 07:00 20 93 Room Air 08/14/20 23:29 98.0 Weight Weight [ ] Input and Output I.O. Intake and Output 08/15/20 07:00 Intake Total 1080 ml Output Total 4400 ml Balance -3320 ml Intake Oral 1080 ml Output Urine Total 4400 ml Laboratory Labs Laboratory Tests Test 08/14/20 06:45 Sodium Level 140 mmol/L (136-145) Potassium Level 4.2 mmol/L (3.5-5.1) Chloride Level 100 mmol/L (98-107) Carbon Dioxide Level 36 mmol/L (21-32) Anion Gap 4 (6-14) Blood Urea Nitrogen 12 mg/dL (8-26) Creatinine 1.0 mg/dL (0.7-1.3) Estimated GFR (Cockcroft-Gault) 90.7 Glucose Level 142 mg/dL (70-99) Calcium Level 9.2 mg/dL (8.5-10.1) Physical Exams HEENT: Neck Supple W Full Motion Chest: Symmetric Lungs: Clear to Auscultation, Other (diminished bases) Heart: irregularly irregular (rate controlled ) Abdomen: Soft N/T, Other (obese ) Extremities: Other (1+ bilateral LE edema ) Neurology: alert, oriented, follow commands Assessment Assessment 1. Acute on chronic diastolic CHF; Echo 01/12 with preserved LV systolic function. Good UOP with combination of Bumex and metolazone 2. H/o NICM with LVEF previously 25%. LVEF recovered per echo 01/12 as noted above. Follows with Dr.Bhagat SUAD 3. Permanent AFIB; OAC with Pradaxa. rate controlled 4. Hypertension; controlled 5. Hyperlipidemia 6. Diabetes, II 7. H/o DVT/PE; chronic OAC 8. Obesity Recommendations Convert Bumex to oral Discussed/encouraged daily weight monitoring at home Continue metoprolol, Digoxin for HR control Pradaxa for stroke prevention Follow up with primary bagger meat upon discharge. ISAURO ORLANDO APRN Aug 15, 2020 08:42
[2020-08-15] MEDS ORDERED: METOPROLOL SUCC 24HR ER 50 MG TAB.ER.24H. PO SCH (09:00)
[2020-08-15] MEDS ORDERED: METO5TAB4 PO (10:52)
[2020-08-15] MEDS ORDERED: METO50TA29 PO (10:52)
[2020-08-15] MEDS ORDERED: BUME2TAB3 PO (10:52)
--- NOTE | 2020-08-15 15:55 | DISCH ---
HOME HEALTH DISCHARGE/MEDS DISCHARGE INFORMATION: Discharge Date: Aug 15, 2020 Final Diagnosis: Problems Medical Problems: (1) CHF exacerbation Status: Acute Condition on Discharge: Stable CODE STATUS: Code Status: Full HOME HEALTH: Face to Face: I certify this patient is under my care and that I, or a nurse practitioner or physician's assistant professor of biochemistry working with me, had a face to face encounter that meets the physician face to face encounter requirements with this patient on August 15, 2020. Medical Condition(s): CHF, COPD, DM, HTN Jail For: Assess Cardiopulm Status, Assess & Educate Safety, Assess/Skilled Observatio, Medication Management Homebound Status Met By: Unsteady balance w/ amb,, Fatigue w/ amb. POST DISCHARGE ORDERS: Activity Instructions for Disc: Activity as tolerated Weight Bearing Status after Di: No restrictions DIET AFTER DISCHARGE: Cardiac CHECKS AFTER DISCHARGE: Checks after discharge: Check blood press - daily, Check blood sugar, ac/hs, Weigh Yourself Daily CERTIFICATION STATEMENT: Certification Statement: Based on the above finding, I certify that this patient is confined to the home and needs intermittent snf care, physical therapy and/or speech therapy, or continues to need occupational therapy.~ This patient is under my care, and I have initiated the establishment of the plan of care.~ This patient will be followed by myself or a community physician who will periodically review the plan of care. DISCHARGE MEDICATIONS: Home Meds Active Scripts Bumetanide (BUMETANIDE) 2 Mg Tablet, 1 TAB PO DAILY for chf, #30 TAB 5 Refills Prov:CORY JIN MD 08/15/20 Metolazone (METOLAZONE) 5 Mg Tablet, 10 MG PO 0830,1330 for chf for 30 Days, #30 TAB 6 Refills Prov:CORY JIN MD 08/15/20 Metoprolol Succinate (METOPROLOL SUCCINATE ( XL )) 50 Mg Tab.er.24h, 150 MG PO DAILY for sfasfasf for 30 Days, #90 TAB.SR 7 Refills Prov:CORY JIN MD 08/15/20 Reported Medications Dabigatran Etexilate Mesylate (PRADAXA) 150 Mg Capsule, 1 CAP PO BID for supplement, #180 CAP 1 Refill 08/11/20 Sitagliptin Phosphate (JANUVIA) 50 Mg Tablet, 1 TAB PO DAILY for diabetes, #30 TAB 5 Refills 08/11/20 Digoxin (DIGOXIN) 125 Mcg Tablet, 125 MCG PO DAILY for AFIB/HEART FAILURE, TAB 08/11/20 Lisinopril (LISINOPRIL) 5 Mg Tablet, 1 TAB PO DAILY for high blood pressure, #30 TAB 5 Refills 08/11/20 Metoprolol Tartrate (METOPROLOL TARTRATE) 50 Mg Tablet, 1 TAB PO BID for high blood pressure, #60 TAB 5 Refills 08/11/20 Pravastatin Sodium (PRAVASTATIN SODIUM) 40 Mg Tablet, 1 TAB PO QHS for high cholesterol, #90 TAB 1 Refill 08/11/20 Metformin Hcl (METFORMIN HCL) 500 Mg Tablet, 1 TAB PO BID for diabetes, #60 TAB 3 Refills 08/11/20 Trazodone Hcl (TRAZODONE HCL) 100 Mg Tablet, 1 TAB PO QHS for insomnia, #30 TAB 1 Refill 08/11/20 Spironolactone (SPIRONOLACTONE) 25 Mg Tablet, 1 TAB PO BID for fluid retention, #90 TAB 1 Refill 08/11/20 Discontinued Reported Medications Furosemide (FUROSEMIDE) 40 Mg Tablet, 1 TAB PO BID92 for fluid retention, #30 TAB 5 Refills 08/11/20 Carvedilol (CARVEDILOL) 25 Mg Tablet, 25 MG PO BIDWMEALS for CARDIAC, TAB 08/11/20 CORY JIN MD Aug 15, 2020 15:55
--- NOTE | 2020-08-30 11:31 | DS ---
DATE OF DISCHARGE: 08/15/2020 HOSPITAL COURSE: A 64-year-old gentleman who came in with increased shortness of breath, orthopnea, dyspnea and the like. The patient was initially seen in the office and was admitted through the Emergency Room where he had increased shortness of breath, noted to be in congestive heart failure. The patient was given IV Lasix as well as metolazone. He only had an ejection fraction of 25%. He has been seen by Dr. Barrow for further evaluation of his CHF. The patient's labs showed a white count 9, hemoglobin 12, hematocrit 39. Chemistries - sodium 140, potassium 4.2, BUN and creatinine of 11 and 1.1. Blood sugars marginally elevated A1c was also noted to be about 6.1, albumin 3.2. BNP of 2300. The patient's chest x-ray did show evidences of mild cardiomegaly, possible consolidation, but the patient did not run any temperatures. His blood pressure approximately 110/80, respiratory 20, pulse 80, afebrile, 95% on room air. The patient continued to make good progress as noted, was seen by Cardiology. They agreed with overall protocol. The patient was discharged home. IMPRESSION AND PLAN: Acute on top of chronic diastolic heart failure, history of cardiomyopathy with ejection fraction of 25%, hyperglycemia, type 2 diabetes, history of DVT and PE, essential hypertension, chronic permanent atrial fibrillation, on Pradaxa, rate controlled, familial hypercholesterolemia, obesity, and moderate protein malnutrition. The patient will be monitored carefully. He will be discharged home. Continue on heart healthy, low-sodium, diabetic diet and make further evaluation on those results. NORM DR: Vincent TID: [id number]
== END 2020-08-15 11:37 | disposition home or self-care (01) | DRG 292 ==
LOC: ER 09:39 → 1 SOUTH 14:59
PROVIDERS: ADMIT Family Medicine; ATTEND Family Medicine
DX: I11.0 Hypertensive heart disease with heart failure (principal); I48.21 Permanent atrial fibrillation; E44.0 Moderate protein-calorie malnutrition; Z68.42 Body mass index [BMI] 45.0-49.9, adult; I50.43 Acute on chronic combined systolic (congestive) and diastolic (congestive) heart failure; F32.9 Major depressive disorder, single episode, unspecified; F41.9 Anxiety disorder, unspecified; E11.65 Type 2 diabetes mellitus with hyperglycemia; E66.01 Morbid (severe) obesity due to excess calories; E78.00 Pure hypercholesterolemia, unspecified; E78.5 Hyperlipidemia, unspecified; I25.10 Atherosclerotic heart disease of native coronary artery without angina pectoris; I42.8 Other cardiomyopathies; Z82.49 Family history of ischemic heart disease and other diseases of the circulatory system; Z86.711 Personal history of pulmonary embolism; Z86.718 Personal history of other venous thrombosis and embolism; G47.37 Central sleep apnea in conditions classified elsewhere; Z86.73 Personal history of transient ischemic attack (TIA), and cerebral infarction without residual deficits
CPT/HCPCS: 36415; 71045; 80048; 80053; 81001; 83036; 83880; 84484; 85025; 93005; 96374; J1940; J3490; 99285-25

== ENCOUNTER 2020-10-24 09:45 | Emergency (ER) | payer MEDICARE ==
[~2020-10-24] VITALS: Ht 188 cm; Wt 159.3 kg
[~2020-10-24 09:45] MED LIST: BUME2TAB3 PO; CARV25TA2 PO; DABI150C PO; DIGO125T17 PO; FURO40TA4 PO; LISI-517 PO; METF500T16 PO; METO50TA29 PO; METO50TA6 PO; METO5TAB4 PO; PRAV40TA2 PO; SITA50TA PO; SPIR25TA5 PO; TRAZ-125 PO
--- NOTE | 2020-10-24 10:11 | PHYS DOC ---
Past History Past Medical History: A-Fib, Anxiety, CAD, CHF, Depression, Diabetes, DVT, High Cholesterol, Heart Disease, Hypertension Additional Past Medical Histor: PE (PREET LUBIN DO) Past Surgical History: Other Additional Past Surgical Histo: Thrombectomy (PREET LUBIN DO) Alcohol Use: Occasionally (PREET LUBIN DO) Adult General Chief Complaint Chief Complaint: SHORTNESS OF BREATH HPI HPI Patient is a 64yo male presenting for "not feeling well". States he sees Dr. Jin and went to his office this past Thursday for basic labs, states he is a hard stick and they were unable to draw blood. Reports over the weekend he just "felt weak and I haven't been peeing as much". States he has had minimal urine output for past 48 hours without known inciting event, infection, trauma or change in med. Today, he decided to come in because he wanted his outpatient labs to be drawn. He is otherwise asymptomatic on arrival and vaccinated against COVID-19 without any obvious symptoms. No fever, chills, dizziness, CP, ripping or tearing in chest, SHOB, AP, NVD, changes in motor or sensory function. (PREET LUBIN DO) Review of Systems Review of Systems Fourteen body systems of review of systems have been reviewed. See HPI for pertinent positives and negative responses, other ross all other systems are negative, non-pertinent or non-contributory (PREET LUBIN DO) Allergies Allergies Allergies Coded Allergies Type Severity Reaction Last Updated Verified No Known Drug Allergies 08/11/20 No (PREET LUBIN DO) Physical Exam Physical Exam Constitutional: Well developed, well nourished, no acute distress, non-toxic appearance. HENT: Normocephalic, atraumatic, bilateral external ears normal, oropharynx dry, no oral exudates, nose normal. Eyes: PERRLA, EOMI, conjunctiva normal, no discharge. Neck: Normal range of motion, no tenderness, supple, no stridor. Cardiovascular: Heart rate regular, sinus rhythm, no murmurs rubs or gallops Lungs & Thorax: Bilateral breath sounds clear to auscultation Abdomen: Bowel sounds normal, soft and protuberant, no tenderness, no masses, no pulsatile masses. Nonsurgical abdomen, no peritoneal signs Skin: Warm, dry, no erythema, no rash. Back: No tenderness, no CVA tenderness. Extremities: No tenderness, no cyanosis, no clubbing, ROM intact, no edema with compression stockings on bilaterally. Neurologic: Alert and oriented X 3, grossly normal motor & sensory function, no focal deficits noted. Psychologic: Affect normal, judgement normal, mood normal. (TRISTIANPREET ) Current Patient Data Vital Signs Vital Signs Date Time Temp Pulse Resp B/P (MAP) Pulse Ox O2 Delivery O2 Flow Rate FiO2 10/24/20 09:45 98.6 88 20 108/59 100 Room Air Vital Signs Date Time Temp Pulse Resp B/P (MAP) Pulse Ox O2 Delivery O2 Flow Rate FiO2 10/24/20 15:40 97.8 79 20 99/59 10/24/20 12:42 100 Room Air Lab Results Laboratory Tests Test 10/24/20 10:38 10/24/20 12:50 10/24/20 13:43 10/24/20 16:27 White Blood Count 16.0 x10^3/uL Red Blood Count 2.02 x10^6/uL Hemoglobin 6.6 g/dL Hematocrit 20.0 % Mean Corpuscular Volume 99 fL Mean Corpuscular Hemoglobin 33 pg Mean Corpuscular Hemoglobin Concent 33 g/dL Red Cell Distribution Width 17.4 % Platelet Count 235 x10^3/uL Neutrophils (%) (Auto) 87 % Lymphocytes (%) (Auto) 7 % Monocytes (%) (Auto) 5 % Eosinophils (%) (Auto) 0 % Basophils (%) (Auto) 0 % Neutrophils # (Auto) 13.9 x10^3uL Lymphocytes # (Auto) 1.1 x10^3/uL Monocytes # (Auto) 0.8 x10^3/uL Eosinophils # (Auto) 0.1 x10^3/uL Basophils # (Auto) 0.1 x10^3/uL Segmented Neutrophils % 88 % Lymphocytes % 8 % Monocytes % 4 % Platelet Estimate Adequate Sodium Level 129 mmol/L Potassium Level 7.3 mmol/L Chloride Level 94 mmol/L Carbon Dioxide Level 24 mmol/L Anion Gap 11 Blood Urea Nitrogen 163 mg/dL Creatinine 6.3 mg/dL Estimated GFR (Cockcroft-Gault) 10.8 BUN/Creatinine Ratio 26 Glucose Level 160 mg/dL Calcium Level 8.3 mg/dL Total Bilirubin 0.2 mg/dL Aspartate Amino Transf (AST/SGOT) 12 U/L Alanine Aminotransferase (ALT/SGPT) 15 U/L Alkaline Phosphatase 41 U/L Troponin I Quantitative 0.046 ng/mL Total Protein 6.7 g/dL Albumin 3.3 g/dL Albumin/Globulin Ratio 1.0 SARS-CoV-2 Antigen (Rapid) Negative Stool Occult Blood Positive Glucose (Fingerstick) 156 mg/dL Current Medications Medications (Trade) Dose Ordered Sig/Nemo Route PRN Reason Start Time Stop Time Status Last Admin Dose Admin Acetaminophen (Tylenol) 650 mg PRN 1X PRN PO PRIOR TO TRANSFUSION 10/24/20 11:30 10/25/20 11:29 10/24/20 15:35 Calcium Gluconate (Calcium Gluconate) 1,000 mg 1X ONCE IV 10/24/20 11:30 10/24/20 11:45 DC 10/24/20 12:03 Dextrose (Dextrose 50%-Water Syringe) 25 gm 1X ONCE IV 10/24/20 11:30 10/24/20 11:45 DC 10/24/20 12:04 Insulin Human Regular (HumuLIN R VIAL) 5 unit 1X ONCE IV 10/24/20 11:30 10/24/20 11:45 DC 10/24/20 12:07 Sodium Chloride 1,000 ml @ 1,000 mls/hr 1X ONCE IV 10/24/20 11:45 10/24/20 12:44 DC 10/24/20 12:12 Sodium Chloride 1,000 ml @ 200 mls/hr 1X ONCE IV 10/24/20 16:30 10/24/20 21:29 Dextrose (Dextrose 50%-Water Syringe) 25 gm 1X ONCE IV 10/24/20 16:45 10/24/20 16:46 DC 10/24/20 16:57 Insulin Human Regular (HumuLIN R VIAL) 5 unit 1X ONCE IV 10/24/20 16:45 10/24/20 16:46 DC 10/24/20 16:59 (PREET LUBIN DO) EKG EKG EKG ordered and interpreted by myself at 1001 hrs. as atrial fibrillation at a rate of 88 bpm, unremarkable intervals, no axis deviation, no acute ischemic findings, no STEMI (PREET LUBIN DO) EKG Repeat EKG 11/04/2020@246 hours shows A. fib, inferior strain pattern. No signs of acute STEMI or contralateral changes. [place] baseline (DA MCKEON MD) Radiology/Procedures Radiology/Procedures AP chest. HISTORY: Short of breath AP view was taken of the chest. Lungs are clear. Heart is normal in size. There is no pleural effusion. IMPRESSION: 1. No acute chest disease. Electronically signed by: Lonny Magdaleno MD (10/24/2020 12:01 PM) [facility] ///////////////////////// EXAM: AP View of the chest DATE: 10/24/2020 3:09 PM INDICATION: Reason: post procedure / Spl. Instructions: / History: COMPARISON: 10/24/2020, 08/11/2020 FINDINGS/ IMPRESSION: Left IJ vascular catheter tip projects over the superior mediastinum, likely projecting over the left brachiocephalic vein. The heart is not enlarged. Mediastinal and hilar contours are normal. No focal parenchymal airspace opacity. No pleural effusion or pneumothorax. Electronically signed by: Toño Lester MD (10/24/2020 3:18 PM) [id number] (PREET LUBIN DO) Heart Score C/O Chest Pain: No HEART Score for Chest Pain: HEART Score for Chest Pain Response (Comments) Value History Highly Suspicious 2 ECG Nonspecific Repolarizatio 1 Age >45 - < 65 1 Risk Factors >3 Risk Factors or Hx CAD 2 Troponin < Normal Limit 0 Total 6 Risk Factors: Risk Factors: DM, Current or recent (<one month) smoker, HTN, HLP, family history of CAD, obesity. Risk Scores: Risk Factors: DM, Current or recent (<one month) smoker, HTN, HLP, family history of CAD, obesity. (PREET LUBIN DO) Course & Med Decision Making Course & Med Decision Making ABCs unremarkable. HPI, PE and comprehensive workup concerning for anemia in a patient with no history colon cancer, no FHx colon cancer and last colonoscopy 10 years ago and normal. Also gross electrolyte imbalance in patient taking lisinopril and spironolactone. Patient a difficult stick, we initially had a peripheral to right AC but this blew. US IV placed but this again became dislodged. As such, verbal and written consent obtained to place IV CVL. Patient received blood products, hyperkalemia treatment, and fluids I contacted hospitalist at [facility] and reviewed need for transfer for GI and Nephro consultation, they agreed and patient accepted under Dr. Shore I updated patient and daughter at bedside on all findings and dire need for transfer for higher acuity of care for which they were amenable. All questions and concerns addressed. Patient pending repeat CBC and BMP and 1u PRB and 10u insulin administered during my shift Please defer to oncoming physician's documentation regarding future care of patient while in our ER Critical Care Time This patient required critical care. Due to the fact that the patient required a significant amount of one on one physician - patient contact time, ordering and review of studies, arranging urgent treatment with development of a management plan, evaluation of patients response to treatment with frequent reassessments, and discussions with other providers this patient required 50 minutes of critical care time. Critical care time was indicated due to the inherent instability and/or potential for instability in this patient. The critical care time that is allocated to this patient is above and beyond any time spent on any other billable procedures performed on this patient. (PREET LUBIN DO) Course & Med Decision Making See Dr. Lubin note for details. Still awaiting placement. Will give his night meds, treat his back pain, and redraw labs and transfuse as needed. Discussed patient with Dr. [facility], still awaiting ICU bed opening. Patient endorsed to Dr. Puckett at shift change 0600. Impression: 1. GI bleed. 2. Acute /Chronic Renal Failure 3. Anemia 4. Chronic Pain 5. Afib 6. Hyperkalemia (DA MCKEON MD) Dragon Disclaimer Dragon Disclaimer This electronic medical record was generated, in whole or in part, using a voice recognition dictation system. (PREET LUBIN DO) Central Line Central Line : Central Line Lumen: triple Central Line Procedure: betadine prep, sterile drapes applied, sterile dressing applied Central Line Postion: internal jugular (L) Anesthesia: Lidocaine Central Line Post Position: sutured, good blood return, position confirmed w/ CXR Progress CVC ACCESS PROCEDURE NOTE INDICATION: Emergency vascular access for fluid and drug administration. INFORMED CONSENT: The risks of the procedure including bleeding, pneumothorax, misplacement and infection were explained to the patient. The patient verbalized their understanding of the procedure, the risks, benefits and alternatives and wished to proceed. Written consent obtained PROCEDURE: The patient was placed in Trendelenburg and the left neck area was prepped and draped in a sterile fashion. The area of interest was anesthetized with local anesthetic. With the introducer needle bevel oriented inferomedially, the left neck area was entered shallowly advancing with continuous aspiration on the syringe until the left IJ vein was entered and there was free flow of venous blood. At this time, patient movement caused guidewire to become dislodged from vein and so, pressure was applied and a new kit was obtained for repeat attempt Using same process above, an introducer needle bevel oriented inferomedially, the left neck area was entered shallowly advancing with continuous aspiration on the syringe until the left IJ vein was entered and there was free flow of venous blood. A Seldinger technique was then utilized to place a central venous catheter over a guidewire and the catheter was secured in place. A Portable Chest X-ray was ordered to confirm the catheters position. I reviewed film with radiologist, CVL noted to be in the left brachiocephalic vein. This was likely due to shallow advancement on my part. Still usable and venous access for blood products and meds etc. EBL: < 10 mL COMPLICATIONS: As mentioned, guidewire kinked on attempt x1. In addition, it appears per post-procedure radiograph that the CVL was not fully advanced. I disclosed both of these complications to both patient and daughter at bedside. No emergent/surgical complications suffered from failed first attempt. Shallow placement still resulted in emergent IV venous access for our team to provide blood products and meds. I answered all questions and concerns they had. (PREET LUBIN DO) Departure Departure: Impression: Primary Impression: Hyperkalemia Additional Impressions: Electrolyte imbalance Acute kidney injury Anemia due to GI blood loss CHF (congestive heart failure) Disposition: [facility] ([facility]) Admitting Physician: Other (dr shore) (PREET LUBIN DO) Condition: GUARDED Referrals: CORY JIN MD (PCP) Problem Qualifiers PREET LUBIN DO Oct 24, 2020 10:11 DA MCKEON MD Oct 25, 2020 01:19
--- NOTE | 2020-10-24 10:54 | EKG ---
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
[2020-10-24 11:03] LABS: BASO # 0.1 x10^3/uL (0.0-0.2); BASO % 0 % (0-3); EOS # 0.1 x10^3/uL (0.0-0.7); EOS % 0 % (0-3); LYMPH # 1.1 x10^3/uL (1.0-4.8); LYMPH % 7 % (24-48); MEAN CORPUSCULAR HEMOGLOBIN 33 pg (25-35); MEAN CORPUSCULAR HGB CONC 33 g/dL (31-37); MEAN CORPUSCULAR VOLUME 99 fL (79-100); MONO # 0.8 x10^3/uL (0.0-1.1); MONO % 5 % (0-9); NEUT # 13.9 x10^3uL (1.8-7.7); NEUT % 87 % (31-73); PLATELET COUNT 235 x10^3/uL (140-400); RED BLOOD COUNT 2.02 x10^6/uL (4.30-5.70); RED CELL DISTRIBUTION WIDTH 17.4 % (11.5-14.5)
[2020-10-24 11:10] LABS: ALBUMIN 3.3 g/dL (3.4-5.0); CALCIUM 8.3 mg/dL (8.5-10.1); CREATININE 6.3 mg/dL (0.7-1.3); GFR 10.8; TOTAL BILIRUBIN 0.2 mg/dL (0.2-1.0); TOTAL PROTEIN 6.7 g/dL (6.4-8.2)
[2020-10-24 11:17] LABS: POTASSIUM 7.3 mmol/L (3.5-5.1)
[2020-10-24 11:21] LABS: HEMOGLOBIN 6.6 g/dL (13.0-17.5)
[2020-10-24] MEDS: CALCIUM GLUCONATE 1,000 MG/10 ML VIAL IV ONE (12:03)
[2020-10-24] MEDS: DEXTROSE 50% 25 GM / 50ML DISP.SYRIN. IV ONE ×2 (12:04→16:57)
--- NOTE | 2020-10-24 12:04 | RAD ---
AP chest. HISTORY: Short of breath AP view was taken of the chest. Lungs are clear. Heart is normal in size. There is no pleural effusio n. IMPRESSION: 1. No acute chest disease. Electronically signed by: Lonny Magdaleno MD (10/24/2020 12:01 PM) [facility]
[2020-10-24] MEDS: INSULIN REGULAR 100 UNIT/ML 3ML VIAL. IV ONE ×2 (12:07→16:59)
[2020-10-24] MEDS: IV NORMAL SALINE 1,000ML 1,000 ML IV ONE ×2 (12:12→18:09)
[2020-10-24 13:44] LABS: % LYMPHS 8 % (24-48); % MONOS 4 % (0-10); % SEGS 88 % (35-66)
[2020-10-24 13:45] LABS: PLT ESTIMATE ADEQUATE (ADEQUATE)
[2020-10-24 14:36] LABS: FECAL OB PT POSITIVE (NEG)
[2020-10-24 15:20] VITALS: BP 101/62
--- NOTE | 2020-10-24 15:20 | RAD ---
EXAM: AP View of the chest DATE: 10/24/2020 3:09 PM INDICATION: Reason: post procedure / Spl. Instructions: / History: COMPARISON: 10/24/2020, 08/11/2020 FINDINGS/ IMPRESSION: Left IJ vascular catheter tip projects over the superior mediastinum, likely projecting over the left brachiocephalic vein. The heart is not enlarged. Mediastinal and hilar contours are normal. No focal parenchymal airspace opacity. No pleural effusion or pneumothorax. Electronically signed by: Toño Lester MD (10/24/2020 3:18 PM) [id number]
[2020-10-24] MEDS: ACETAMINOPHEN 325 MG TABLET PO PRN (15:35)
[2020-10-24 15:40] VITALS: BP 99/59
[2020-10-24 18:03] LABS: BASO % 0 % (0-3); EOS % 0 % (0-3); HEMATOCRIT 20.6 % (39.0-53.0); LYMPH % 7 % (24-48); MEAN CORPUSCULAR HEMOGLOBIN 32 pg (25-35); MEAN CORPUSCULAR HGB CONC 33 g/dL (31-37); MEAN CORPUSCULAR VOLUME 98 fL (79-100); MONO # 0.9 x10^3/uL (0.0-1.1); MONO % 6 % (0-9); NEUT # 13.3 x10^3uL (1.8-7.7); NEUT % 87 % (31-73); PLATELET COUNT 209 x10^3/uL (140-400); RED CELL DISTRIBUTION WIDTH 17.5 % (11.5-14.5); WHITE BLOOD COUNT 15.2 x10^3/uL (4.0-11.0)
[2020-10-24 18:11] LABS: HEMOGLOBIN 6.8 g/dL (13.0-17.5)
[2020-10-24 18:19] LABS: CREATININE 5.8 mg/dL (0.7-1.3); GFR 11.9
[2020-10-24 18:30] LABS: POTASSIUM 6.8 mmol/L (3.5-5.1)
[2020-10-24] MEDS ORDERED: IV NORMAL SALINE 500ML 500 ML ONE (19:24)
[2020-10-24 19:30] VITALS: BP 69/37
[2020-10-24 19:45] VITALS: BP 111/75
[2020-10-24 21:00] VITALS: BP 92/63
[2020-10-25] VITALS (9 sets, daily range): BP systolic 98–166; BP diastolic 48–96
[2020-10-25] MEDS ORDERED: traZODone 50 MG TABLET. ONE (01:17)
[2020-10-25] MEDS ORDERED: FAMOTIDINE 20 MG/2 ML VIAL ONE (01:17)
[2020-10-25] MEDS ORDERED: MORPHINE SULFATE 10 MG/ML SYRINGE. ONE (01:17)
[2020-10-25] MEDS: traZODone 50 MG TABLET. PO ONE (01:23)
[2020-10-25] MEDS: MORPHINE SULFATE 10 MG/ML SYRINGE. SQ ONE (01:24)
[2020-10-25] MEDS: FAMOTIDINE 20 MG/2 ML VIAL IVP ONE (01:24)
[2020-10-25] MEDS ORDERED: diphenhydrAMINE ORAL ELIXIR 12.5 MG/5 ML ML PO PRN (01:30)
[2020-10-25] MEDS ORDERED: ACETAMINOPHEN 325 MG TABLET PO PRN (01:30)
[2020-10-25 01:49] LABS: BASO % 0 % (0-3); EOS # 0.1 x10^3/uL (0.0-0.7); EOS % 0 % (0-3); HEMATOCRIT 22.9 % (39.0-53.0); HEMOGLOBIN 7.6 g/dL (13.0-17.5); LYMPH # 2.2 x10^3/uL (1.0-4.8); LYMPH % 13 % (24-48); MEAN CORPUSCULAR HEMOGLOBIN 32 pg (25-35); MEAN CORPUSCULAR HGB CONC 33 g/dL (31-37); MEAN CORPUSCULAR VOLUME 96 fL (79-100); MONO # 1.4 x10^3/uL (0.0-1.1); MONO % 8 % (0-9); NEUT % 78 % (31-73); PLATELET COUNT 198 x10^3/uL (140-400); RED CELL DISTRIBUTION WIDTH 17.1 % (11.5-14.5); WHITE BLOOD COUNT 16.6 x10^3/uL (4.0-11.0)
[2020-10-25 02:02] LABS: CALCIUM 8.1 mg/dL (8.5-10.1); CREATININE 5.1 mg/dL (0.7-1.3); GFR 13.8
[2020-10-25 02:21] LABS: POTASSIUM 6.6 mmol/L (3.5-5.1)
--- NOTE | 2020-10-25 03:14 | EKG ---
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
[2020-10-25] MEDS ORDERED: IV NORMAL SALINE 50ML 50 ML ONE (04:29)
[2020-10-25] MEDS ORDERED: cefTRIAXone SODIUM 1 GM VIAL ONE (04:30)
[2020-10-25] MEDS: CALCIUM CHLORIDE 1,000 MG/10 ML DISP.SYRIN IV ONE (04:55)
[2020-10-25] MEDS: SODIUM BICARB ADULT 8.4% 50 MEQ/50 ML DISP.SYRIN. IV ONE (04:55)
[2020-10-25] MEDS: FUROSEMIDE 40 MG/4 ML VIAL IVP ONE (04:55)
[2020-10-25] MEDS: IV NORMAL SALINE 1,000ML 1,000 ML IV ONE (04:56)
[2020-10-25 08:00] LABS: BASO % 0 % (0-3); EOS % 0 % (0-3); HEMATOCRIT 21.1 % (39.0-53.0); LYMPH # 1.2 x10^3/uL (1.0-4.8); LYMPH % 7 % (24-48); MEAN CORPUSCULAR HEMOGLOBIN 32 pg (25-35); MEAN CORPUSCULAR HGB CONC 33 g/dL (31-37); MEAN CORPUSCULAR VOLUME 97 fL (79-100); MONO # 1.2 x10^3/uL (0.0-1.1); MONO % 7 % (0-9); NEUT % 85 % (31-73); PLATELET COUNT 204 x10^3/uL (140-400); RED BLOOD COUNT 2.18 x10^6/uL (4.30-5.70); RED CELL DISTRIBUTION WIDTH 17.7 % (11.5-14.5); WHITE BLOOD COUNT 16.5 x10^3/uL (4.0-11.0)
[2020-10-25 08:06] LABS: HEMOGLOBIN 6.9 g/dL (13.0-17.5)
[2020-10-25 08:07] LABS: CALCIUM 8.6 mg/dL (8.5-10.1); CREATININE 4.8 mg/dL (0.7-1.3); GFR 14.8
[2020-10-25 08:15] LABS: POTASSIUM 6.1 mmol/L (3.5-5.1)
[2020-10-25 08:35] LABS: BILIRUBIN,URINE NEG (NEG); CLARITY,URINE CLEAR; COLOR,URINE YELLOW; GLUCOSE,URINE NEG (NEG)
[2020-10-25 08:36] LABS: BACTERIA,URINE 0 /HPF (0-FEW); NITRITE,URINE NEG (NEG); SQUAMOUS EPITHELIAL CELL,UR MOD /LPF; UROBILINOGEN,URINE 0.2 mg/dL (0.2 mg/dL)
[2020-10-25] MEDS: INSULIN REGULAR 100 UNIT/ML 3ML VIAL. IV ONE (08:41)
[2020-10-25] MEDS: IV DEXTROSE 5% - 0.9 % NACL 1,000 ML IV ONE (08:42)
[2020-10-25] MEDS: CALCIUM GLUCONATE 1,000 MG/10 ML VIAL IV ONE (10:47)
[2020-10-25] MEDS ORDERED: IV NORMAL SALINE 500ML 500 ML ONE (12:01)
[2020-10-25] MEDS: PANTOPRAZOLE IV 40 MG VIAL. IVP ONE (12:04)
== END 2020-10-25 14:34 | disposition short-term general hospital (02) ==
LOC: ER 10:05
DX: E87.5 Hyperkalemia (principal); E87.8 Other disorders of electrolyte and fluid balance, not elsewhere classified; D64.9 Anemia, unspecified; N17.9 Acute kidney failure, unspecified; I11.0 Hypertensive heart disease with heart failure; I50.9 Heart failure, unspecified; E78.5 Hyperlipidemia, unspecified; Z20.822 Contact with and (suspected) exposure to COVID-19
CPT/HCPCS: 36415; 36430; 36556; 71045; 80048; 80053; 81001; 82274; 82947; 84484; 85007; 85025; 85045; 86850; 86900; 86901; 86920; 87086; 87426; 93005; 96361; 96365; 96366; 96367; 96372; 96375; 96376; 99291; C9113; J0610; J0696; J1815; J1940; J2270; J3490; J7030; J7042; P9016; U0003

== ENCOUNTER 2021-01-24 09:06 | Inpatient (IN) | payer MEDICARE ==
[~2021-01-24] VITALS: Ht 188 cm; Wt 41.8 kg
[~2021-01-24 09:06] MED LIST changes: -LISI-517 PO; +LISI5TAB15 PO
--- NOTE | 2021-01-24 10:12 | PHYS DOC ---
Past History Past Medical History: A-Fib, Anxiety, CAD, CHF, Depression, Diabetes, DVT, High Cholesterol, Heart Disease, Hypertension Additional Past Medical Histor: PE Past Surgical History: Other Additional Past Surgical Histo: Thrombectomy Smoking: Non-smoker Alcohol Use: Rarely Drug Use: None General Adult EDM: Chief Complaint: LOWER EXTREMITY SWELLING HPI: HPI: 65-year-old male with history of atrial fibrillation and congestive heart failure presents to the ED with chief complaint of bilateral lower extremity swe lling. Patient states that both of his lower extremities have been swelling more than usual over the last week. Denies pain associated with the leg swelling. Patient denies significant short of breath or palpitations. Patient denies chest pain. Patient does report was recently seen [facility] where he was admitted with plans for pacemaker placement. Patient rep orts he was only discharged home on 2 medications. Patient's spouse thinks that this was an error as patient was on multiple medications prior to this admission. Patient denies known exposure to COVID-19. Patient has received Moderna vaccinations x2. Review of Systems: Review of Systems: Constitutional: Denies fever or chills Eyes: Denies change in visual acuity, redness, or eye pain HENT: Denies nasal congestion or sore throat Respiratory: Denies cough; reports dyspnea with exertion Cardiovascular: Denies chest pain or palpitations GI: Denies abdominal pain, nausea, vomiting, or diarrhea : Denies dysuria or hematuria Musculoskeletal: Denies back pain; reports bilateral lower extremity edema Integument: Denies rash or skin lesions Neurologic: Denies headache, focal weakness or sensory changes Complete systems were reviewed and found to be within normal limits, except as documented in this note. Allergies: Allergies: Allergies Coded Allergies Type Severity Reaction Last Updated Verified No Known Drug Allergies 01/24/21 No Physical Exam: PE: Constitutional: Well developed, obese, no acute distress, non-toxic appearance HENT: Normocephalic, atraumatic Eyes: Conjunctiva normal, no discharge Neck: Normal range of motion, supple Lungs & Thorax: No respiratory distress, equal chest rise and fall Skin: Warm, dry, no erythema, no rash Extremities: No tenderness, ROM intact, 4+ bilateral lower extremity edema, right pretibial clear intact blister noted Neurologic: Alert and oriented X 3, normal motor function, normal sensory function, no focal deficits noted Psychologic: Affect normal, judgment normal Current Patient Data: Vital Signs: Vital Signs Date Time Temp Pulse Resp B/P (MAP) Pulse Ox O2 Delivery O2 Flow Rate FiO2 01/24/21 09:15 97.8 140 26 148/102 (117) 97 Room Air EKG: EKG: EKG @ 1024. No p-wave found at rate of 143 bpm. QRS 62 ms. Qt 318 ms. QTc 497ms. RR 421ms. Low limb lead voltage. No STEMI. Radiology/Procedures: Radiology/Procedures: [] Impressions: XR CHEST 1V CLINICAL INDICATIONS: Shortness of air, peripheral edema / Spl. Instructions: / History: COMPARISON: October 24, 2020. Findings: Mild bilateral diffuse acute interstitial pulmonary edema or interstitial lung infiltrates are seen. No pleural effusion or lung consolidati on or pneumothorax is seen. Heart size is prominent some of which is due to AP magnification. Mediastinum and pulmonary vasculature are unremarkable. IMPRESSION: Mild bilateral diffuse acute interstitial pulmonary edema or interstitial lung infiltrates. Electronically signed by: Josue Smith MD (01/24/2021 10:30 AM) [id number] Heart Score: C/O Chest Pain: No Course & Med Decision Making: Course & Med Decision Making 65-year-old male with history of atrial fibrillation and congestive heart failure presents to the ED with chief complaint of bilateral lower extremity swelling. Patient does report some dyspnea with exertion. Patient also with significant edema noted to bilateral lower extremities. Patient with history of being taken off multiple of his medications upon discharge from [facility]. Telemetry monitoring upon patient's arrival with concern for A. fib RVR. EKG confirmed A. fib RVR. Cardizem bolus and drip initiated with interval improvement. Labs obtained and posted to chart. BNP significantly elevated. Chest x-ray with signs of vascular congestion. Patient typically on Bumex. Bumex therefore provided. Pertinent Labs and Imaging studies reviewed. (See chart for details) Patient requiring admission for further evaluation and treatment. Discussed with Dr. Reynolds (hospitalist) who is in agreement with admit. Discussed findings and plan with patient and spouse, who acknowledge understanding and agreement. Ethan Disclaimer: Ethan Disclaimer: This electronic medical record was generated, in whole or in part, using a voice recognition dictation system. Departure Departure: Impression: Primary Impression: Atrial fibrillation with rapid ventricular response Additional Impression: Acute exacerbation of CHF (congestive heart failure) Qualified Codes: I50.9 - Heart failure, unspecified Disposition: ADMITTED INPATIENT (ICU) Admitting Physician: Adelaida Reynolds Condition: GUARDED Referrals: ANU MARS (PCP) Critical Care Time Critical care time was 30 minutes which includes time at bedside, spent in discussion of patient's care with specialists and/or family members, with interpretation of laboratory and/or radiological studies and is exclusive of procedures. CAITLIN SAWYER DO Jan 24, 2021 10:12
[2021-01-24] MEDS ORDERED: dilTIAZem VIAL 125 MG in IV NORMAL SALINE 100ML 100 ML IV ONE (10:15)
[2021-01-24] MEDS ORDERED: ASPIRIN 325 MG TABLET PO ONE (10:15)
[2021-01-24] MEDS ORDERED: dilTIAZem 25 MG/5 ML VIAL IVP ONE (10:15)
--- NOTE | 2021-01-24 10:32 | RAD ---
XR CHEST 1V CLINICAL INDICATIONS: Shortness of air, peripheral edema / Spl. Instructions: / History: COMPARISON: October 24, 2020. Findings: Mild bilateral diffuse acute interstitial pulmonary edema or interstitial lung infiltrates are seen. No pleural effusion or lung consolidation or pneumothorax is seen. Heart size is prominent some of which is due to AP magnification. Mediastinum and pulmonary vasculature are unremarkable. IMPRESSION: Mild bilateral diffuse acute interstitial pulmonary edema or interstitial lung infiltrate s. Electronically signed by: Josue Smith MD (01/24/2021 10:30 AM) [id number]
[2021-01-24 11:25] LABS: BASO # 0.1 x10^3/uL (0.0-0.2); BASO % 1 % (0-3); EOS # 0.2 x10^3/uL (0.0-0.7); EOS % 2 % (0-3); HEMATOCRIT 36.7 % (39.0-53.0); HEMOGLOBIN 11.4 g/dL (13.0-17.5); LYMPH # 1.7 x10^3/uL (1.0-4.8); LYMPH % 16 % (24-48); MEAN CORPUSCULAR HEMOGLOBIN 26 pg (25-35); MEAN CORPUSCULAR HGB CONC 31 g/dL (31-37); MEAN CORPUSCULAR VOLUME 84 fL (79-100); MONO # 1.1 x10^3/uL (0.0-1.1); MONO % 10 % (0-9); NEUT # 7.8 x10^3uL (1.8-7.7); NEUT % 72 % (31-73); PLATELET COUNT 381 x10^3/uL (140-400); RED BLOOD COUNT 4.37 x10^6/uL (4.30-5.70); RED CELL DISTRIBUTION WIDTH 21.5 % (11.5-14.5); WHITE BLOOD COUNT 10.9 x10^3/uL (4.0-11.0)
[2021-01-24 11:35] LABS: ANION GAP 4 (6-14); BLOOD UREA NITROGEN 15 mg/dL (8-26); BUN/CREATININE RATIO 13 (6-20); CARBON DIOXIDE 33 mmol/L (21-32); CHLORIDE 102 mmol/L (98-107); CREATININE 1.2 mg/dL (0.7-1.3); GFR 73.3; GLUCOSE 159 mg/dL (70-99); POTASSIUM 5.1 mmol/L (3.5-5.1); SODIUM 139 mmol/L (136-145)
[2021-01-24 11:53] LABS: ALBUMIN 3.1 g/dL (3.4-5.0); ALBUMIN/GLOBULIN RATIO 0.7 (1.0-1.7); ALK PHOS 85 U/L (46-116); ALT (SGPT) 26 U/L (16-63); AST (SGOT) 24 U/L (15-37); LIPASE 92 U/L (73-393); TOTAL BILIRUBIN 0.3 mg/dL (0.2-1.0); TOTAL PROTEIN 7.4 g/dL (6.4-8.2)
[2021-01-24 12:01] LABS: MAGNESIUM 2.4 mg/dL (1.8-2.4)
[2021-01-24 12:17] LABS: ANISOCYTOSIS PRESENT; PLT ESTIMATE ADEQUATE (ADEQUATE); POLYCHROMASIA PRESENT
[2021-01-24] MEDS ORDERED: BUMETANIDE 1 MG/4 ML VIAL. IVP ONE (13:15)
[2021-01-24] MEDS ORDERED: ACETAMINOPHEN 325 MG TABLET PO PRN (13:15)
[2021-01-24 15:04] LABS: BILIRUBIN,URINE NEG (NEG); CLARITY,URINE CLEAR; COLOR,URINE YELLOW; GLUCOSE,URINE NEG (NEG); NITRITE,URINE NEG (NEG)
[2021-01-24 15:05] LABS: BACTERIA,URINE 0 /HPF (0-FEW); RBC,URINE OCC /HPF (0-2); SQUAMOUS EPITHELIAL CELL,UR FEW /LPF
[2021-01-24] MEDS: dilTIAZem VIAL 125 MG in IV NORMAL SALINE 100ML 100 ML IV PRN (19:00)
[2021-01-24 19:33] VITALS: BP 125/88
[2021-01-24] MEDS ORDERED: RIVA20TA2 PO (20:18)
[2021-01-24] MEDS ORDERED: ASPI-889 PO (20:18)
--- NOTE | 2021-01-24 20:51 | NUR ---
Pt arrived to ICU bed 5 via gurney from ED at 1830 prior to my arrival; A&Ox4; geriatric nurse assistant shows Afib RVR with rate 100-120, Cardizem drip infusing at 20mg/hr, B/P 125/88, denies any pain or palpitations at this time; large, intact, fluid-filled blister with thick skin noted to RLE measuring approx 12x9cm, photo taken and placed in chart; contacted to notify of admit, cardiology consult phoned to 's after hours answering service. Addendum: 01/24/21 at 2126 by SHARMIN ALONSO RN RN Correction: Cardizem drip is infusing at 15mg/hr. [email or web address]
[2021-01-24 21:37] VITALS: BP 125/88
[2021-01-24 23:03] VITALS: BP 149/82
[2021-01-25] VITALS (21 sets, daily range): BP systolic 113–148; BP diastolic 65–98
[2021-01-25] MEDS: dilTIAZem VIAL 125 MG in IV NORMAL SALINE 100ML 100 ML IV PRN (02:39)
--- NOTE | 2021-01-25 06:34 | NUR ---
Cardizem drip continues infusing at 10mg/hr, HR 90-100; has been sleeping soundly with no apparent distress through most of the night.
--- NOTE | 2021-01-25 06:57 | EKG ---
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
[2021-01-25] MEDS ORDERED: FLU VACC QUAD 21-22 (6MOS+) PF 0.5 ML SYRINGE. VAX IM ONE (09:00)
[2021-01-25] MEDS: ASPIRIN ENTERIC COATED 81 MG TABLET.DR. PO SCH (09:16)
--- NOTE | 2021-01-25 12:40 | PDOC2 ---
CONSULT DOS: DATE: 01/25/21 TIME: 12:40 Reason for Consult: Atrial fibrillation with RVR and congestive heart failure Referring Physician: Dr. Reynolds Chief Complaint Edema Source: Chart review, Patient Problem List Problems Medical Problems: (1) Acute exacerbation of CHF (congestive heart failure) Status: Acute (2) Atrial fibrillation with rapid ventricular response Status: Acute History of Present Illness 65-year-old male with history of permanent atrial fibrillation and chronic diastolic heart failure presented with progressive bilateral lower extremity edema and water blister on right leg and was diagnosed with atrial fibrillation with RVR and acute on chronic diastolic heart failure and admitted for further management. He was placed on Cardizem drip with better control of heart rate. Patient recently had GI bleeding and hence his Pradaxa was stopped and he was referred to EP for possible left atrial appendage closure. SAMIRA at [facility] however apparently showed MARIYA thrombus and he was placed on Xarelto and the procedure was deferred. He complained of mild shortness of breath but denied any chest pain, orthopnea/PND, palpitations or syncope. Upon further interrogation and review of patient's paperwork, it looks like when patient was discharged from [facility], there was some confusion about medications and he was not taking his metoprolol. Past Medical History Cardiovascular: AFIB, CHF, HTN, hyperipidemia Heme/Onc: Other (DVT, PE) Psych: Anxiety, Depression Endocrine: Diabetes Past Surgical History: No pertinent history Family History: Hypertension Social History Patient admitted to occasional alcohol use but denied any smoking or drug use. Current Medications Current Medications Diltiazem HCl (Cardizem Iv Push) 20 mg 1X ONCE IVP Last administered on 01/24/21at 11:07; Start 01/24/21 at 10:15; Stop 01/24/21 at 10:24; Status DC Aspirin (Ca Aspirin) 325 mg 1X ONCE PO Last administered on 01/24/21at 11:06; Start 01/24/21 at 10:15; Stop 01/24/21 at 10:24; Status DC Diltiazem HCl 125 mg/Sodium Chloride 125 ml @ 10 mls/hr 1X ONCE IV Last administered on 01/24/21at 11:08; Start 01/24/21 at 10:15; Stop 01/24/21 at 20:24; Status DC Bumetanide (Bumex) 1 mg 1X ONCE IVP Last administered on 01/24/21at 13:16; Start 01/24/21 at 13:15; Stop 01/24/21 at 13:16; Status DC Acetaminophen (Tylenol) 650 mg PRN Q4HRS PRN PO FEVER > 100.3'F; Start 01/24/21 at 13:15; Stop 01/25/21 at 13:14 Diltiazem HCl 125 mg/Sodium Chloride 125 ml @ 5 mls/hr CONT PRN IV PER PROTOCOL Last administered on 01/25/21at 02:39; Start 01/24/21 at 18:45 Aspirin (Aspirin Enteric Coated) 81 mg DAILYWBKFT PO Last administered on 01/25/21at 09:16; Start 01/25/21 at 08:00 Rivaroxaban (Xarelto) 20 mg DAILYWSUP PO ; Start 01/25/21 at 17:00 Influenza Virus Vaccine Quadrival (Flulaval Quad [id number] Syringe) 0.5 ml ONCE ONCE VAX IM Last administered on 01/25/21at 09:17; Start 01/25/21 at 09:00; Stop 01/25/21 at 09:01; Status DC Active Scripts Active Reported Xarelto (Rivaroxaban) 20 Mg Tablet 1 Tab PO DAILY 30 Days with food Aspirin Ec (Aspirin) 81 Mg Tablet.dr 1 Tab PO DAILY Allergies: Coded Allergies: No Known Drug Allergies (Unverified , 01/24/21) PSYCHOLOGICAL ROS: No: Hallucinations Eyes: No: Loss of vision HEENT: No: Epistaxis Respiratory: YES: Shortness of breath; No: Hemoptysis Gastrointestinal: No: Vomiting Genitourinary: No: [place] Neurological: No: Seizures Skin: No: Rash General: Alert HEENT: Atraumatic Lungs: Other (Bilateral basal crepitations) Heart: Other (Heart rate irregular) Abdomen: Soft, No tenderness Extremities: Other (2+ pitting pedal edema) Neuro: Normal speech VITALS Vital Signs Date Time Temp Pulse Resp B/P (MAP) Pulse Ox O2 Delivery O2 Flow Rate FiO2 01/25/21 11:51 98.2 115 22 142/91 (108) 94 Room Air 01/25/21 10:00 2.0 Labs Laboratory Tests Test 01/24/21 10:11 01/24/21 10:55 01/24/21 14:10 01/24/21 14:12 SARS-CoV-2 Antigen (Rapid) Negative (NEGATIVE) White Blood Count 10.9 x10^3/uL (4.0-11.0) Red Blood Count 4.37 x10^6/uL (4.30-5.70) Hemoglobin 11.4 g/dL (13.0-17.5) Hematocrit 36.7 % (39.0-53.0) Mean Corpuscular Volume 84 fL (79-100) Mean Corpuscular Hemoglobin 26 pg (25-35) Mean Corpuscular Hemoglobin Concent 31 g/dL (31-37) Red Cell Distribution Width 21.5 % (11.5-14.5) Platelet Count 381 x10^3/uL (140-400) Neutrophils (%) (Auto) 72 % (31-73) Lymphocytes (%) (Auto) 16 % (24-48) Monocytes (%) (Auto) 10 % (0-9) Eosinophils (%) (Auto) 2 % (0-3) Basophils (%) (Auto) 1 % (0-3) Neutrophils # (Auto) 7.8 x10^3uL (1.8-7.7) Lymphocytes # (Auto) 1.7 x10^3/uL (1.0-4.8) Monocytes # (Auto) 1.1 x10^3/uL (0.0-1.1) Eosinophils # (Auto) 0.2 x10^3/uL (0.0-0.7) Basophils # (Auto) 0.1 x10^3/uL (0.0-0.2) Platelet Estimate Adequate (ADEQUATE) Polychromasia Present Anisocytosis Present Prothrombin Time 14.6 SEC (9.4-11.4) Prothromb Time International Ratio 1.4 (0.9-1.1) Activated Partial Thromboplast Time 34 SEC (23-33) Sodium Level 139 mmol/L (136-145) Potassium Level 5.1 mmol/L (3.5-5.1) Chloride Level 102 mmol/L (98-107) Carbon Dioxide Level 33 mmol/L (21-32) Anion Gap 4 (6-14) Blood Urea Nitrogen 15 mg/dL (8-26) Creatinine 1.2 mg/dL (0.7-1.3) Estimated GFR (Cockcroft-Gault) 73.3 BUN/Creatinine Ratio 13 (6-20) Glucose Level 159 mg/dL (70-99) Calcium Level 9.0 mg/dL (8.5-10.1) Magnesium Level 2.4 mg/dL (1.8-2.4) Total Bilirubin 0.3 mg/dL (0.2-1.0) Aspartate Amino Transf (AST/SGOT) 24 U/L (15-37) Alanine Aminotransferase (ALT/SGPT) 26 U/L (16-63) Alkaline Phosphatase 85 U/L (46-116) Creatine Kinase 67 U/L (39-308) Creatine Kinase MB (Mass) 1.0 ng/mL (0.0-3.6) Creatine Kinase MB Relative Index % (0-4) Troponin I High Sensitivity 28 ng/L (4-75) 30 ng/L (4-75) BD-Zxm-J-Type Natriuretic Peptide 1684 pg/mL (0-124) Total Protein 7.4 g/dL (6.4-8.2) Albumin 3.1 g/dL (3.4-5.0) Albumin/Globulin Ratio 0.7 (1.0-1.7) Lipase 92 U/L (73-393) Coronavirus (COVID-19)(PCR) Not detected (NOT DETECTD) Urine Collection Type Unknown Urine Color Yellow Urine Clarity Clear Urine pH 6.0 Urine Specific [place] 1.020 Urine Protein 100 mg/dl (NEG-TRACE) Urine Glucose (UA) Neg mg/dL (NEG) Urine Ketones (Stick) Neg mg/dL (NEG) Urine Blood Neg (NEG) Urine Nitrite Neg (NEG) Urine Bilirubin Neg (NEG) Urine Urobilinogen Dipstick 1.0 mg/dL (0.2 mg/dL) Urine Leukocyte Esterase Neg (NEG) Urine RBC Occ /HPF (0-2) Urine WBC 1-4 /HPF (0-4) Urine Squamous Epithelial Cells Few /LPF Urine Bacteria 0 /HPF (0-FEW) Assessment/Plan 1. Acute on chronic diastolic heart failure: Most probably secondary to confusion with medications upon recent DC from [facility] and atrial fibrillation with RVR. Continue diuresis with Bumex. Patient has history of nonischemic cardiomyopathy with LVEF 25% in the past but subsequent 2D echocardiogram showed normalized left ventricle systolic function. Continue other medications 2. Permanent atrial fibrillation with RVR secondary to not taking his metoprolol. His heart rate is better controlled with Cardizem drip. Change this to p.o. He was recently referred for left atrial appendage closure since he was deemed a poor candidate for long-term anticoagulation secondary to GI bleeding and anemia. However, he was noted to have thrombus in his left atrial appendage and hence he was placed on Xarelto and the procedure was deferred. Follow-up with EP service upon discharge. 3. Hypertension: Controlled 4. Hyperlipidemia: Statin therapy 5. Diabetes mellitus type 2: Per IM 6. h/o DVT/PE Thank you for your consultation AMAIRANI ALFREDO MD Jan 25, 2021 12:40
[2021-01-25] MEDS ORDERED: METF500T16 PO (13:15)
[2021-01-25] MEDS ORDERED: METO50TA6 PO (13:15)
[2021-01-25] MEDS ORDERED: TRAZ-125 PO (13:15)
[2021-01-25] MEDS ORDERED: SITA50TA PO (13:15)
[2021-01-25] MEDS ORDERED: RIVA20TA2 PO (13:15)
[2021-01-25] MEDS ORDERED: PRAV40TA2 PO (13:15)
[2021-01-25] MEDS ORDERED: BUME2TAB3 PO (13:15)
[2021-01-25] MEDS: BUMETANIDE 1 MG/4 ML VIAL. IVP SCH (13:51)
--- NOTE | 2021-01-25 17:30 | NUR ---
Wound/Ostomy Care Wound Type/Assessment: Wound consult for large blister to RLE. Pt has edema in BLE that has caused large blister. Blister popped with cleansing, removed loose skin and redressed wound. Treatment Recommendations/Plan: Cleanse wound, apply xeroform, ABD and kerlix. Apply medigrip G and elevate legs. Change dressing daily. Education provided: WC POC, importance of elevation, reduced sodium diet, and PU prevention Offloading surface/device: pt is a self turn Recommended Referrals/Tests: na Discharge Recommendations for dressings: see above
[2021-01-25] MEDS: metFORMIN 500 MG TABLET PO SCH (17:53)
[2021-01-25] MEDS: RIVAROXABAN 10 MG TABLET. PO SCH (17:53)
--- NOTE | 2021-01-25 18:10 | HP ---
DATE OF SERVICE: 01/25/2021 ADMIT DATE: 01/24/2021 HISTORY OF PRESENT ILLNESS: The patient is a 65-year-old -Greek male patient who presented to the Emergency Room with a right lower extremity blister and bilateral lower extremity swelling. He stated that both of his lower extremities have been swelling more than usual over the last week. He denies pain associated with the leg swelling. The patient denies any significant shortness of breath or palpitation. Denied any chest pain. He does report that he was recently seen at [facility], where he was admitted with a plan for pacemaker placement. He reports that he was only discharged home on 2 medications. Apparently, the plan for placement of the pacemaker was aborted, as he was found to have an intramural thrombus, for which he was started on Xarelto. He denied any known exposure to COVID-19. He has recently received Moderna vaccination x 2. He was evaluated in the Emergency Room, was found to be in atrial fibrillation with rapid ventricular response, for which he was started on Cardizem drip and was admitted for further evaluation and treatment. PAST MEDICAL HISTORY: Significant for atrial fibrillation, congestive heart failure, hypertension, hyperlipidemia. He has a history of DVT and PE, anxiety and depression, type 2 diabetes, hypertension. PAST SURGICAL HISTORY: Unremarkable. FAMILY HISTORY: Positive for hypertension. SOCIAL HISTORY: He is single, never ; however, he has 2 children. He does not smoke, drinks alcohol occasionally. Does not use any drugs. He is currently on disability. ALLERGIES: He has no known drug allergies. MEDICATIONS: He is currently on the following medications: He is on rivaroxaban 20 mg once a day, pravastatin 40 mg at bedtime, metoprolol tartrate 50 mg twice a day, aspirin 81 mg once a day, trazodone 100 mg at bedtime, bumetanide 2 mg daily, metformin 500 mg twice a day, and sitagliptin phosphate 50 mg daily. REVIEW OF SYSTEMS: As per history of present illness. PHYSICAL EXAMINATION: GENERAL: On arrival to the Emergency Room, the patient was tachypneic, tachycardic. He was also pale, not jaundiced or cyanosed, no lymphadenopathy, no thyromegaly, no jugular venous distention, but bilateral lower limb edema with a large blister on the medial aspect of the right leg. VITAL SIGNS: His heart rate was 140, irregularly irregular, blood pressure was 148/102, temperature was 97.8, respiratory rate 26, and oxygen saturation was 97% on room air. HEAD, EYES, EARS, NOSE, AND THROAT: Normocephalic, atraumatic. NECK: Supple. HEART: Showed normal first and second heart sounds. No gallop, rub or murmur. CHEST: Shows central trachea, equal bilateral chest expansion, air entry, vesicular breath sounds with bilateral basal crepitation. ABDOMEN: Distended, soft, nontender. NEUROLOGIC: He was grossly intact. LABORATORY DATA: His lab work on admission showed a white cell count of 10,900, hemoglobin 11.4, hematocrit 36, MCV was 84 and a platelet count of 381,000 with normal manual differential. His chemistry showed serum sodium 130, potassium 5.1, chloride 102, bicarbonate 33, anion gap of 4, BUN of 15, creatinine 1.2. Estimated GFR was 73 mL per minute. His glucose 159, calcium was 9, magnesium was 2.4. AST, ALT, alkaline phosphatase were normal. His first set of troponin high-sensitivity was 28. Beta natriuretic peptide was 1684. Total protein was 7.4, albumin was 3.1 and lipase was 92. His prothrombin time was 14.6, INR of 1.4, APTT was 33. Urinalysis essentially unremarkable, and his coronavirus by PCR was negative. His chest x-ray showed mild bilateral diffuse acute interstitial pulmonary edema or interstitial lung infiltrates are seen. No pleural effusion or lung consolidation or pneumothorax is seen. The heart size is prominent, some of which is due to AP magnification. Mediastinum and pulmonary vasculature are unremarkable. ASSESSMENT AND PLAN: So, the patient was admitted with atrial fibrillation with rapid ventricular response, acute on chronic diastolic congestive heart failure, has multiple other medical problems, including hypertension, hyperlipidemia, history of deep venous thrombosis, and pulmonary embolism. He was started on diltiazem and also bumetanide and continued on his rivaroxaban. We will reconcile all his medications. I will repeat all his lab works again tomorrow. We have already consulted the track repair person to assist with management of his atrial fibrillation with rapid ventricular response. AMEE/JEMIMA DR: Farnaz TID: [id number]
[2021-01-25] MEDS: ATORVASTATIN CALCIUM 10 MG TABLET. PO SCH (21:03)
[2021-01-25] MEDS: traZODone 100 MG TABLET. PO SCH (21:03)
[2021-01-25] MEDS: METOPROLOL TART IMMED RELEASE 50 MG TABLET PO SCH (21:06)
[2021-01-26 02:10] VITALS: BP 95/61
[2021-01-26] MEDS: oxyCODONE IR 5 MG TABLET PO PRN ×2 (05:30→08:11)
[2021-01-26 05:41] VITALS: BP 114/74
[2021-01-26] MEDS: METOPROLOL TART IMMED RELEASE 50 MG TABLET PO SCH ×2 (08:10→20:28)
[2021-01-26] MEDS: metFORMIN 500 MG TABLET PO SCH ×2 (08:10→16:33)
[2021-01-26] MEDS: LINAGLIPTIN 5 MG TABLET PO SCH (08:10)
[2021-01-26] MEDS: BUMETANIDE 1 MG/4 ML VIAL. IVP SCH (08:11)
[2021-01-26] MEDS: ASPIRIN ENTERIC COATED 81 MG TABLET.DR. PO SCH (08:12)
[2021-01-26] MEDS ORDERED: BENZOCAINE/MENTHOL LOZNGE 18'S BOX. ONE (08:59)
[2021-01-26] MEDS ORDERED: ASPIRIN ENTERIC COATED 81 MG TABLET.DR. PO SCH (09:00)
[2021-01-26 09:22] LABS: ALBUMIN/GLOBULIN RATIO 0.7 (1.0-1.7); CALCIUM 8.6 mg/dL (8.5-10.1); CREATININE 1.4 mg/dL (0.7-1.3); GFR 61.4; POTASSIUM 4.8 mmol/L (3.5-5.1); TOTAL BILIRUBIN 0.5 mg/dL (0.2-1.0); TOTAL PROTEIN 7.4 g/dL (6.4-8.2)
[2021-01-26 11:00] VITALS: BP 111/82
[2021-01-26 11:00] LABS: RED BLOOD COUNT 4.19 x10^6/uL (4.30-5.70); RED CELL DISTRIBUTION WIDTH 21.7 % (11.5-14.5); WHITE BLOOD COUNT 12.7 x10^3/uL (4.0-11.0)
[2021-01-26 15:00] VITALS: BP 114/76
[2021-01-26] MEDS ORDERED: BUMETANIDE 1 MG/4 ML VIAL. IVP SCH (15:45)
--- NOTE | 2021-01-26 16:16 | PDOC ---
DATE OF SERVICE: DOS: DATE: 01/26/21 TIME: 16:14 SUBJECTIVE: Patient seen and examined He reports feeling better today. OBJECTIVE: Problems: Problems Medical Problems: (1) Acute exacerbation of CHF (congestive heart failure) Status: Acute (2) Atrial fibrillation with rapid ventricular response Status: Acute Vital Signs/I&O: Vital Signs Date Time Temp Pulse Resp B/P (MAP) Pulse Ox O2 Delivery O2 Flow Rate FiO2 01/26/21 11:00 98.4 68 15 111/82 (92) 95 Room Air 01/26/21 06:00 2.0 I & O 01/25/21 01/25/21 01/26/21 15:00 23:00 07:00 Intake Total 900 ml 780 ml Output Total 400 ml 1225 ml 200 ml Balance 500 ml -445 ml -200 ml Labs: Laboratory Tests Test 01/26/21 08:45 01/26/21 10:45 Sodium Level 136 mmol/L (136-145) Potassium Level 4.8 mmol/L (3.5-5.1) Chloride Level 99 mmol/L (98-107) Carbon Dioxide Level 28 mmol/L (21-32) Anion Gap 9 (6-14) Blood Urea Nitrogen 19 mg/dL (8-26) Creatinine 1.4 mg/dL (0.7-1.3) H Estimated GFR (Cockcroft-Gault) 61.4 BUN/Creatinine Ratio 14 (6-20) Glucose Level 203 mg/dL (70-99) H Calcium Level 8.6 mg/dL (8.5-10.1) Total Bilirubin 0.5 mg/dL (0.2-1.0) Aspartate Amino Transferase (AST) 22 U/L (15-37) Alanine Aminotransferase (ALT) 21 U/L (16-63) Alkaline Phosphatase 83 U/L (46-116) Total Protein 7.4 g/dL (6.4-8.2) Albumin 3.0 g/dL (3.4-5.0) L Albumin/Globulin Ratio 0.7 (1.0-1.7) L Thyroid Stimulating Hormone (TSH) 2.117 uIU/mL (0.358-3.740) White Blood Count 12.7 x10^3/uL (4.0-11.0) H Red Blood Count 4.19 x10^6/uL (4.30-5.70) L Hemoglobin 11.0 g/dL (13.0-17.5) L Hematocrit 35.0 % (39.0-53.0) L Mean Corpuscular Volume 84 fL (79-100) Mean Corpuscular Hemoglobin 26 pg (25-35) Mean Corpuscular Hemoglobin Concent 31 g/dL (31-37) Red Cell Distribution Width 21.7 % (11.5-14.5) H Platelet Count 395 x10^3/uL (140-400) Physical Exam: Chest. Mildly decreased breath sounds bilaterally. CV. Irregularly irregular. Abdomen. Soft without masses or tenderness. ASSESSMENT: 1. Acute on chronic diastolic heart failure: Most probably secondary to confusion with medications upon recent DC from [facility] and atrial fibrillation with RVR. Continue diuresis with Bumex and his other medications. Patient has history of nonischemic cardiomyopathy with LVEF 25% in the past but subsequent 2D echocardiogram showed normalized left ventricle systolic function. Patient reports feeling significantly better today. 2. Permanent atrial fibrillation with RVR secondary to not taking his metoprolol. His heart rate is better controlled with oral Cardizem. He was recently referred for left atrial appendage closure since he was deemed a poor candidate for long-term anticoagulation secondary to GI bleeding and anemia. However, he was noted to have thrombus in his left atrial appendage and hence he was placed on Xarelto and the procedure was deferred. Follow-up with EP service upon discharge. 3. Hypertension: Controlled 4. Hyperlipidemia: Statin therapy 5. Diabetes mellitus type 2: Per IM 6. h/o DVT/PE Justification of Admission: Justification of Admission: Justification of Admission Dx: Yes ANTONIA LEUNG MD Jan 26, 2021 16:16
[2021-01-26] MEDS: RIVAROXABAN 10 MG TABLET. PO SCH (16:33)
[2021-01-26] MEDS ORDERED: ONDANSETRON ODT 4 MG TAB.RAPDIS PO PRN (17:45)
[2021-01-26] MEDS ORDERED: ONDANSETRON PF 4 MG/2 ML VIAL. IVP PRN (18:45)
[2021-01-26 19:25] LABS: BASO # 0.1 x10^3/uL (0.0-0.2); BASO % 1 % (0-3); EOS # 0.1 x10^3/uL (0.0-0.7); EOS % 1 % (0-3); HEMATOCRIT 36.5 % (39.0-53.0); HEMOGLOBIN 11.2 g/dL (13.0-17.5); LYMPH # 1.7 x10^3/uL (1.0-4.8); LYMPH % 13 % (24-48); MEAN CORPUSCULAR HEMOGLOBIN 26 pg (25-35); MEAN CORPUSCULAR HGB CONC 31 g/dL (31-37); MEAN CORPUSCULAR VOLUME 84 fL (79-100); MONO # 1.5 x10^3/uL (0.0-1.1); MONO % 11 % (0-9); NEUT # 10.1 x10^3uL (1.8-7.7); NEUT % 75 % (31-73); PLATELET COUNT 440 x10^3/uL (140-400); RED BLOOD COUNT 4.37 x10^6/uL (4.30-5.70); WHITE BLOOD COUNT 13.5 x10^3/uL (4.0-11.0)
--- NOTE | 2021-01-26 19:32 | RAD ---
Exam: CT of abdomen and pelvis without contrast INDICATION: Abdominal pain with bloating TECHNIQUE: Sequential axial images through the abdomen and pelvis obtained without IV contrast. Sagit remi and coronal reformatted images were reconstructed from the axial data and reviewed. Exposure: One or more of the following in the visualized dose reduction techniques were utilized for this examination: 1. Automated exposure control 2. Adjustment of the MA and/or KV according to patient size 3. Use of iterative of reconstructive technique Comparisons: None FINDINGS: Heart size is normal. No pericardial effusion. Small bilateral pleural effusions with adjacent atelec tasis. Evaluation of solid organs limited secondary to noncontrast technique. Liver, spleen, pancreas, gallbladder and adrenals are unremarkable. No perinephric inflammation or hydronephrosis. No renal or ureteral calculi are identified. Bladder is decompressed not well evaluated. Prostate is not enlarged. Large and small bowel are unremarkable. Appendix is nonidentified. No free intra-abdominal air or flu id. No obstruction. Abdominal aorta has normal course and caliber. Abdominal vasculature is patent. No enlarged intra-abdominal lymph nodes are identified. No suspicious osseous lesions or acute fractures. IMPRESSION: No acute process identified within the abdomen or pelvis. Electronically signed by: Shawn Herrera MD (01/26/2021 7:30 PM) [facility]
[2021-01-26 19:33] LABS: CALCIUM 9.1 mg/dL (8.5-10.1); CREATININE 1.6 mg/dL (0.7-1.3); GFR 52.6
[2021-01-26 19:39] LABS: ALBUMIN 3.2 g/dL (3.4-5.0); ALBUMIN/GLOBULIN RATIO 0.7 (1.0-1.7); TOTAL BILIRUBIN 0.4 mg/dL (0.2-1.0); TOTAL PROTEIN 7.9 g/dL (6.4-8.2)
[2021-01-26 19:52] LABS: POTASSIUM 5.8 mmol/L (3.5-5.1)
[2021-01-26 20:25] VITALS: BP 123/91
[2021-01-26] MEDS: traZODone 100 MG TABLET. PO SCH (20:29)
[2021-01-26] MEDS: ATORVASTATIN CALCIUM 10 MG TABLET. PO SCH (20:29)
[2021-01-26 20:36] LABS: % EOS 1 % (0-5); % LYMPHS 17 % (24-48); % MONOS 12 % (0-10); % SEGS 70 % (35-66)
[2021-01-26 20:39] LABS: PLT ESTIMATE ADEQUATE (ADEQUATE)
[2021-01-26 20:40] LABS: ANISOCYTOSIS PRESENT; POLYCHROMASIA PRESENT
--- NOTE | 2021-01-26 20:52 | PN ---
DATE: 01/26/2021 SUBJECTIVE: The patient is sitting at the edge of the bed, continued to complain of swelling of his legs and that his response to IV Bumex is suboptimal. He does also complain of shortness of breath on exertion. PHYSICAL EXAMINATION: GENERAL: When I examined him this afternoon, he looked well and was clearly in no apparent respiratory distress, pale, but no jaundice, cyanosis, no lymphadenopathy, no thyromegaly, no jugular venous distention. No limb edema. VITAL SIGNS: His heart rate was 68, blood pressure was 111/82, temperature was 98.4, respiratory rate was 15 and oxygen saturation was 95% on room air. HEAD, EYES, EARS, NOSE, AND THROAT: Normocephalic, atraumatic. NECK: Supple. HEART: Normal first and second heart sounds. No gallop or murmur. CHEST: Clear to auscultation, no crepitation or rhonchi. ABDOMEN: Distended, soft, nontender. NEUROLOGIC: He was grossly intact. EXTREMITIES: He has marked bilateral lower extremity edema and the blister was deroofed yesterday and he is now covered with dressing. His intake was 570, output was 1000. LABORATORY DATA: As of this morning, his white cell count was 12,700, hemoglobin 11, hematocrit 35, MCV 84 and platelet count 395,000. Serum sodium was 135, potassium 4.8, chloride 98, bicarbonate 28, anion gap of 9, BUN 19, creatinine 1.4. Estimated GFR was 61 mL per minute. His glucose was 203, calcium was 8.6. Total bilirubin, AST, ALT, alkaline phosphatase were normal. Total protein 7.4, albumin 3. ASSESSMENT: 1. Atrial fibrillation with rapid ventricular response, currently rate controlled, well anticoagulated. 2. Acute on chronic diastolic congestive heart failure. 3. Hypertension. 4. Hyperlipidemia. 5. History of deep vein thrombosis and pulmonary embolism. PLAN: I increased the dose of Bumex to 2 mg IV twice a day. Meanwhile, continue with metoprolol 50 mg twice a day and diltiazem 360 mg once a day. Continue with rivaroxaban for stroke prevention, metformin and linagliptin for blood sugar, atorvastatin for hyperlipidemia and oxycodone for pain management. MOLLY/GIOVANA DR: Farnaz TID: [id number]
[2021-01-26 21:30] VITALS: BP 118/81
[2021-01-26] MEDS: IV NORMAL SALINE 1,000ML 1,000 ML IV SCH (21:56)
--- NOTE | 2021-01-26 22:10 | NUR ---
Pt was getting up from the chair to the bed and asked this nurse to pull him up out of the chair. This nurse told him to try to get up on his own and pt did get up on his own with no help.
[2021-01-27 05:55] VITALS: BP 111/78
[2021-01-27] MEDS: LINAGLIPTIN 5 MG TABLET PO SCH (08:32)
[2021-01-27] MEDS: metFORMIN 500 MG TABLET PO SCH ×2 (08:32→16:13)
[2021-01-27] MEDS: METOPROLOL TART IMMED RELEASE 50 MG TABLET PO SCH ×2 (08:33→19:32)
[2021-01-27] MEDS: oxyCODONE IR 5 MG TABLET PO PRN ×2 (08:35→16:28)
[2021-01-27] MEDS: ASPIRIN ENTERIC COATED 81 MG TABLET.DR. PO SCH (08:35)
[2021-01-27] MEDS: IV NORMAL SALINE 1,000ML 1,000 ML IV SCH ×3 (08:35→23:00)
[2021-01-27 11:32] LABS: CALCIUM 8.6 mg/dL (8.5-10.1); CREATININE 1.4 mg/dL (0.7-1.3); GFR 61.4; POTASSIUM 4.8 mmol/L (3.5-5.1)
--- NOTE | 2021-01-27 12:48 | PN ---
DATE: 01/27/2021 SUBJECTIVE: The patient is sitting comfortably in his chair, in no apparent distress. On questioning him, he denied any complaint. We actually have over diuresed him and his creatinine has risen up yesterday to 1.6. I held his Bumex to start him on some IV fluid. However, today's labs are still pending. PHYSICAL EXAMINATION: GENERAL: When I saw him this afternoon, he looked well and was clearly in no apparent respiratory distress. No pallor, jaundice, cyanosis or thyromegaly. No jugular venous distention. Mild bilateral lower extremity edema. VITAL SIGNS: His heart rate is down to 69, blood pressure is 111/72, temperature was 97.6, respiratory rate was 16 and oxygen saturation was 99% on room air. HEAD, EYES, EARS, NOSE, AND THROAT: Normocephalic, atraumatic. NECK: Supple. HEART: Showed normal first and second heart sounds. No gallop, rub or murmur. CHEST: Clear to auscultation, no crepitation or rhonchi. ABDOMEN: Distended, soft, nontender. NEUROLOGIC: He is awake, alert, responding appropriately. All cranial nerves intact. He moves extremities without difficulty. His intake was 1700, output was 1825. LABORATORY DATA: As of yesterday showed a white cell count of 13,500, hemoglobin 11, hematocrit 36, MCV 84 and platelet count of 440,000. Serum sodium yesterday was 136, potassium 5.8, chloride 98, bicarbonate 31, anion gap of 7, BUN 33, creatinine 1.6. Estimated GFR was 52 mL per minute. Glucose 199, calcium was 9.1. Total bilirubin, AST, ALT, alkaline phosphatase were normal. Lactate dehydrogenase was 267. Total protein 7.9, albumin 3.2 and lipase was 67. His TSH was normal at 2.117. ASSESSMENT: 1. Atrial fibrillation with rapid ventricular response, rate controlled, well anticoagulated. 2. Acute on chronic diastolic congestive heart failure. 3. Acute on chronic kidney disease or injury. 4. Hypertension. 5. Hyperlipidemia. 6. History of deep vein thrombosis as well as pulmonary embolism. PLAN: My plan is to hold off on his Bumex. Continue with IV fluid, continue with other medication including his metoprolol 50 mg twice a day and all his other medications. Hopefully, if his kidney function returned back to normal, we can discharge him home tomorrow, to continue on his current medication. TERESA DR: Farnaz TID: [id number]
--- NOTE | 2021-01-27 14:00 | PDOC ---
DATE OF SERVICE: DOS: DATE: 01/27/21 TIME: 13:58 SUBJECTIVE: Patient seen and examined OBJECTIVE: Problems: Problems Medical Problems: (1) Acute exacerbation of CHF (congestive heart failure) Status: Acute (2) Atrial fibrillation with rapid ventricular response Status: Acute Vital Signs/I&O: Vital Signs Date Time Temp Pulse Resp B/P (MAP) Pulse Ox O2 Delivery O2 Flow Rate FiO2 01/27/21 12:25 97.8 01/27/21 09:05 99 Room Air 01/27/21 08:34 69 111/78 01/27/21 05:55 14 2.0 I & O0 01/26/21 01/26/21 01/27/21 15:00 23:00 07:00 Intake Total 600 ml Output Total 350 ml 500 ml Balance 250 ml -500 ml Labs: Laboratory Tests Test 01/26/21 18:50 01/26/21 22:40 01/27/21 11:10 White Blood Count 13.5 x10^3/uL (4.0-11.0) H Red Blood Count 4.37 x10^6/uL (4.30-5.70) Hemoglobin 11.2 g/dL (13.0-17.5) L Hematocrit 36.5 % (39.0-53.0) L Mean Corpuscular Volume 84 fL (79-100) Mean Corpuscular Hemoglobin 26 pg (25-35) Mean Corpuscular Hemoglobin Concent 31 g/dL (31-37) Red Cell Distribution Width 22.0 % (11.5-14.5) H Platelet Count 440 x10^3/uL (140-400) H Neutrophils (%) (Auto) 75 % (31-73) H Lymphocytes (%) (Auto) 13 % (24-48) L Monocytes (%) (Auto) 11 % (0-9) H Eosinophils (%) (Auto) 1 % (0-3) Basophils (%) (Auto) 1 % (0-3) Neutrophils # (Auto) 10.1 x10^3uL (1.8-7.7) H Lymphocytes # (Auto) 1.7 x10^3/uL (1.0-4.8) Monocytes # (Auto) 1.5 x10^3/uL (0.0-1.1) H Eosinophils # (Auto) 0.1 x10^3/uL (0.0-0.7) Basophils # (Auto) 0.1 x10^3/uL (0.0-0.2) Segmented Neutrophils % 70 % (35-66) H Lymphocytes % 17 % (24-48) L Monocytes % 12 % (0-10) H Eosinophils % 1 % (0-5) Platelet Estimate Adequate (ADEQUATE) Polychromasia Present Anisocytosis Present Sodium Level 136 mmol/L (136-145) 133 mmol/L (136-145) L Potassium Level 5.8 mmol/L (3.5-5.1) #H 4.8 mmol/L (3.5-5.1) # Chloride Level 98 mmol/L (98-107) 100 mmol/L (98-107) Carbon Dioxide Level 31 mmol/L (21-32) 25 mmol/L (21-32) Anion Gap 7 (6-14) 8 (6-14) Blood Urea Nitrogen 23 mg/dL (8-26) 27 mg/dL (8-26) H Creatinine 1.6 mg/dL (0.7-1.3) H 1.4 mg/dL (0.7-1.3) H Estimated GFR (Cockcroft-Gault) 52.6 61.4 BUN/Creatinine Ratio 14 (6-20) Glucose Level 199 mg/dL (70-99) H 137 mg/dL (70-99) H Lactic Acid Level 2.4 mmol/L (0.4-2.0) H 1.1 mmol/L (0.4-2.0) Calcium Level 9.1 mg/dL (8.5-10.1) 8.6 mg/dL (8.5-10.1) Total Bilirubin 0.4 mg/dL (0.2-1.0) Aspartate Amino Transferase (AST) 22 U/L (15-37) Alanine Aminotransferase (ALT) 24 U/L (16-63) Alkaline Phosphatase 86 U/L (46-116) Lactate Dehydrogenase 267 U/L (85-227) H Total Protein 7.9 g/dL (6.4-8.2) Albumin 3.2 g/dL (3.4-5.0) L Albumin/Globulin Ratio 0.7 (1.0-1.7) L Lipase 67 U/L (73-393) L Physical Exam: Chest. Minimally decreased breath sounds. CV. Irregularly irregular Abdomen. Soft. ASSESSMENT: 1. Acute on chronic diastolic heart failure: Most probably secondary to confusion with medications upon recent DC from [facility] and atrial fibrillation with RVR. Patient is feeling better with present treatment. He has history of nonischemic cardiomyopathy with LVEF 25% in the past but subsequent 2D echocar diogram showed normalized left ventricle systolic function. Patient reports feeling better today. 2. Permanent atrial fibrillation with RVR secondary to not taking his metoprolol. His heart rate is better controlled with oral Cardizem. Rate today of 78. Continue present treatment. He was recently referred for left atrial appendage closure since he was deemed a poor candidate for long-term anticoagulation secondary to GI bleeding and anemia. However, he was noted to have thrombus in his left atrial appendage and hence he was placed on Xarelto and the procedure was deferred. Follow-up with EP service upon discharge. 3. Hypertension: Controlled 4. Hyperlipidemia: Statin therapy 5. Diabetes mellitus type 2: Per IM 6. h/o DVT/PE Justification of Admission: Justification of Admission: Justification of Admission Dx: Yes ANTONIA LEUNG MD Jan 27, 2021 14:00
[2021-01-27 14:16] VITALS: BP 105/74
[2021-01-27 15:39] LABS: BASO # 0.1 x10^3/uL (0.0-0.2); BASO % 1 % (0-3); EOS # 0.2 x10^3/uL (0.0-0.7); EOS % 1 % (0-3); HEMATOCRIT 38.9 % (39.0-53.0); LYMPH # 1.5 x10^3/uL (1.0-4.8); LYMPH % 11 % (24-48); MEAN CORPUSCULAR HEMOGLOBIN 26 pg (25-35); MEAN CORPUSCULAR HGB CONC 31 g/dL (31-37); MEAN CORPUSCULAR VOLUME 84 fL (79-100); MONO # 1.1 x10^3/uL (0.0-1.1); MONO % 9 % (0-9); NEUT # 10.4 x10^3uL (1.8-7.7); NEUT % 78 % (31-73); PLATELET COUNT 352 x10^3/uL (140-400); RED BLOOD COUNT 4.66 x10^6/uL (4.30-5.70); RED CELL DISTRIBUTION WIDTH 21.8 % (11.5-14.5); WHITE BLOOD COUNT 13.2 x10^3/uL (4.0-11.0)
[2021-01-27] MEDS: RIVAROXABAN 10 MG TABLET. PO SCH (16:13)
[2021-01-27 18:17] VITALS: BP 104/76
[2021-01-27] MEDS: ATORVASTATIN CALCIUM 10 MG TABLET. PO SCH (19:32)
[2021-01-27] MEDS: traZODone 100 MG TABLET. PO SCH (19:33)
[2021-01-28] VITALS (8 sets, daily range): BP systolic 116–175; BP diastolic 81–98
--- NOTE | 2021-01-28 07:47 | PDOC ---
ISAURO ORLANDO LEVELMAN 01/28/21 0747: CARDIO Progress Notes Date & Time Date of Service DATE: 01/28/21 TIME: 07:43 Time of Evaluation 07:43 Subjective Notes LE and abdominal fluid retention slightly better. No chest pain, palpitations. Vitals Vitals Vital Signs Date Time Temp Pulse Resp B/P (MAP) Pulse Ox O2 Delivery O2 Flow Rate FiO2 01/28/21 06:07 97.7 72 20 117/81 (93) 97 Nasal Cannula 2.0 Weight Weight [ ] Input and Output I.O. Intake and Output 01/28/21 07:00 Intake Total 360 ml Output Total 550 ml Balance -190 ml Intake Oral 360 ml Output Urine Total 550 ml Laboratory Labs Laboratory Tests Test 01/26/21 08:45 01/26/21 10:45 01/26/21 18:50 01/26/21 22:40 Sodium Level 136 mmol/L (136-145) 136 mmol/L (136-145) Potassium Level 4.8 mmol/L (3.5-5.1) 5.8 mmol/L (3.5-5.1) Chloride Level 99 mmol/L (98-107) 98 mmol/L (98-107) Carbon Dioxide Level 28 mmol/L (21-32) 31 mmol/L (21-32) Anion Gap 9 (6-14) 7 (6-14) Blood Urea Nitrogen 19 mg/dL (8-26) 23 mg/dL (8-26) Creatinine 1.4 mg/dL (0.7-1.3) 1.6 mg/dL (0.7-1.3) Estimated GFR (Cockcroft-Gault) 61.4 52.6 BUN/Creatinine Ratio 14 (6-20) 14 (6-20) Glucose Level 203 mg/dL (70-99) 199 mg/dL (70-99) Calcium Level 8.6 mg/dL (8.5-10.1) 9.1 mg/dL (8.5-10.1) Total Bilirubin 0.5 mg/dL (0.2-1.0) 0.4 mg/dL (0.2-1.0) Aspartate Amino Transf (AST/SGOT) 22 U/L (15-37) 22 U/L (15-37) Alanine Aminotransferase (ALT/SGPT) 21 U/L (16-63) 24 U/L (16-63) Alkaline Phosphatase 83 U/L (46-116) 86 U/L (46-116) Total Protein 7.4 g/dL (6.4-8.2) 7.9 g/dL (6.4-8.2) Albumin 3.0 g/dL (3.4-5.0) 3.2 g/dL (3.4-5.0) Albumin/Globulin Ratio 0.7 (1.0-1.7) 0.7 (1.0-1.7) Thyroid Stimulating Hormone (TSH) 2.117 uIU/mL (0.358-3.740) White Blood Count 12.7 x10^3/uL (4.0-11.0) 13.5 x10^3/uL (4.0-11.0) Red Blood Count 4.19 x10^6/uL (4.30-5.70) 4.37 x10^6/uL (4.30-5.70) Hemoglobin 11.0 g/dL (13.0-17.5) 11.2 g/dL (13.0-17.5) Hematocrit 35.0 % (39.0-53.0) 36.5 % (39.0-53.0) Mean Corpuscular Volume 84 fL (79-100) 84 fL (79-100) Mean Corpuscular Hemoglobin 26 pg (25-35) 26 pg (25-35) Mean Corpuscular Hemoglobin Concent 31 g/dL (31-37) 31 g/dL (31-37) Red Cell Distribution Width 21.7 % (11.5-14.5) 22.0 % (11.5-14.5) Platelet Count 395 x10^3/uL (140-400) 440 x10^3/uL (140-400) Neutrophils (%) (Auto) 75 % (31-73) Lymphocytes (%) (Auto) 13 % (24-48) Monocytes (%) (Auto) 11 % (0-9) Eosinophils (%) (Auto) 1 % (0-3) Basophils (%) (Auto) 1 % (0-3) Neutrophils # (Auto) 10.1 x10^3uL (1.8-7.7) Lymphocytes # (Auto) 1.7 x10^3/uL (1.0-4.8) Monocytes # (Auto) 1.5 x10^3/uL (0.0-1.1) Eosinophils # (Auto) 0.1 x10^3/uL (0.0-0.7) Basophils # (Auto) 0.1 x10^3/uL (0.0-0.2) Segmented Neutrophils % 70 % (35-66) Lymphocytes % 17 % (24-48) Monocytes % 12 % (0-10) Eosinophils % 1 % (0-5) Platelet Estimate Adequate (ADEQUATE) Polychromasia Present Anisocytosis Present Lactic Acid Level 2.4 mmol/L (0.4-2.0) 1.1 mmol/L (0.4-2.0) Lactate Dehydrogenase 267 U/L (85-227) Lipase 67 U/L (73-393) Test 01/27/21 11:10 01/27/21 15:30 Sodium Level 133 mmol/L (136-145) Potassium Level 4.8 mmol/L (3.5-5.1) Chloride Level 100 mmol/L (98-107) Carbon Dioxide Level 25 mmol/L (21-32) Anion Gap 8 (6-14) Blood Urea Nitrogen 27 mg/dL (8-26) Creatinine 1.4 mg/dL (0.7-1.3) Estimated GFR (Cockcroft-Gault) 61.4 Glucose Level 137 mg/dL (70-99) Calcium Level 8.6 mg/dL (8.5-10.1) White Blood Count 13.2 x10^3/uL (4.0-11.0) Red Blood Count 4.66 x10^6/uL (4.30-5.70) Hemoglobin 12.0 g/dL (13.0-17.5) Hematocrit 38.9 % (39.0-53.0) Mean Corpuscular Volume 84 fL (79-100) Mean Corpuscular Hemoglobin 26 pg (25-35) Mean Corpuscular Hemoglobin Concent 31 g/dL (31-37) Red Cell Distribution Width 21.8 % (11.5-14.5) Platelet Count 352 x10^3/uL (140-400) Neutrophils (%) (Auto) 78 % (31-73) Lymphocytes (%) (Auto) 11 % (24-48) Monocytes (%) (Auto) 9 % (0-9) Eosinophils (%) (Auto) 1 % (0-3) Basophils (%) (Auto) 1 % (0-3) Neutrophils # (Auto) 10.4 x10^3uL (1.8-7.7) Lymphocytes # (Auto) 1.5 x10^3/uL (1.0-4.8) Monocytes # (Auto) 1.1 x10^3/uL (0.0-1.1) Eosinophils # (Auto) 0.2 x10^3/uL (0.0-0.7) Basophils # (Auto) 0.1 x10^3/uL (0.0-0.2) Physical Exams HEENT: Neck Supple W Full Motion Chest: Symmetric Lungs: Other (diminished bases) Heart: irregularly irregular (AFIB, rate controlled ) Abdomen: Other (tight, distended. Non-tender ) Extremities: Other (wound to RLE, dressing intact. Bilateral LE very tight, edematous. ) Neurology: alert, oriented, follow commands Assessment Assessment 1. Acute on chronic diastolic heart failure 2. H/o NICM with LVEF 25%. Subsequent echo 11/13 showed LV recovery with preserved EF 3. Permanent AFIB presenting with RVR secondary to not taking his metoprolol. HR now controlled with metoprolol, Cardizem. He was recently referred for LAAO as he was deemed a poor candidate for long-term anticoagulation secondary to anemia, GIB. However, he was noted to have thrombus in his left atrial appendage and hence he was placed on Xarelto and the procedure was deferred. Hgb stable. Follow-up with EP service upon discharge. 4. Hypertension: Controlled 5. Hyperlipidemia: Statin therapy 6. Diabetes mellitus type 2: Per IM 7. h/o DVT/PE 8. CHARLES, hyperkalemia; s/p IVFs. Cr better at 1.4 Recommendations Discontinue IVFs Check post void residual 2000cc FR, 2 Gm Na diet. Daily weights Although improved, does appear to still be volume overloaded. May benefit from RHC. Will discuss with primary auto heater mechanic RAVEN SANTOS MD 01/28/21 1254: CARDIO Progress Notes Plan Plan Pt. seen and examined. Agree with above DIRECTOR CLINICAL OPERATIONS note. Mr. Holland has presented with severe decompensated heart failure. He appears to be in a shock state with poor urine output despite aggressive diuretics. He is approximately 30 lbs above his dry weight. He has tachypnea, 4+ bilateral lower extremity edema and is not yet ready for discharge. We will plan for initiation of milrinone therapy and then subsequently rechallenge him with IV diuretics. He may need ICU level care and we will follow along closely depending on his urine output. ISAURO ORLANDO APRN Jan 28, 2021 07:47 RAVEN SANTOS MD Jan 28, 2021 12:54
[2021-01-28] MEDS: ASPIRIN ENTERIC COATED 81 MG TABLET.DR. PO SCH (08:38)
[2021-01-28] MEDS: metFORMIN 500 MG TABLET PO SCH ×2 (08:38→17:00)
[2021-01-28] MEDS: oxyCODONE IR 5 MG TABLET PO PRN (08:39)
[2021-01-28] MEDS: LINAGLIPTIN 5 MG TABLET PO SCH (08:39)
[2021-01-28] MEDS: METOPROLOL TART IMMED RELEASE 50 MG TABLET PO SCH ×2 (08:40→21:26)
[2021-01-28] MEDS ORDERED: METO50TA6 PO (11:19)
[2021-01-28] MEDS ORDERED: OXYC5TAB4 PO (11:19)
[2021-01-28] MEDS ORDERED: DILT360T7 PO (11:19)
--- NOTE | 2021-01-28 11:24 | DISCH ---
HOME HEALTH DISCHARGE/MEDS DISCHARGE INFORMATION: Discharge Date: Jan 28, 2021 Final Diagnosis: Problems Medical Problems: (1) Acute exacerbation of CHF (congestive heart failure) Status: Acute (2) Atrial fibrillation with rapid ventricular response Status: Acute Condition on Discharge: Stable CODE STATUS: Code Status: Full HOME HEALTH: Face to Face: I certify this patient is under my care and that I, or a nurse practitioner or physician's furniture removalist's assistant working with me, had a face to face encounter that meets the physician face to face encounter requirements with this patient on 01/28/2021 Medical Condition(s): CHF Alf For: Medication Management Physical Therapy For: Evalulation/Treatment Occupational Therapy For: Evaluation/Treatment Homebound Status Met By: Limited distance walking POST DISCHARGE ORDERS: Activity Instructions for Disc: Activity as tolerated DIET AFTER DISCHARGE: Cardiac CERTIFICATION STATEMENT: Certification Statement: Based on the above finding, I certify that this patient is confined to the home and needs intermittent long term care, physical therapy and/or speech therapy, or continues to need occupational therapy.~ This patient is under my care, and I have initiated the establishment of the plan of care.~ This patient will be followed by myself or a community physician who will periodically review the plan of care. DISCHARGE MEDICATIONS: Home Meds Active Scripts Oxycodone Hcl (OXYCODONE HCL IMMED.RELEASE ) 5 Mg Tablet, 5 MG PO PRN Q6HRS PRN for PAIN for 15 Days, #60 TAB 0 Refills Prov:DENNIS CAMACHO MD 01/28/21 Diltiazem HCl (Diltiazem 24Hr ER) 360 Mg Tab.er.24h, 1 TAB PO DAILY for A FIB for 30 Days, #30 TAB 5 Refills Prov:DENNIS CAMACHO MD 01/28/21 Metoprolol Tartrate (METOPROLOL TARTRATE) 50 Mg Tablet, 1 TAB PO BID for A FIB for 30 Days, #60 TAB 5 Refills Prov:DENNIS CAMACHO MD 01/28/21 Reported Medications Rivaroxaban (XARELTO) 20 Mg Tablet, 1 TAB PO DAILY for clots for 30 Days, #30 TAB 0 Refills with food 01/25/21 Pravastatin Sodium (PRAVASTATIN SODIUM) 40 Mg Tablet, 1 TAB PO QHS for HLD, #90 TAB 1 Refill 01/25/21 Trazodone Hcl (TRAZODONE HCL) 100 Mg Tablet, 1 TAB PO QHS for insomnia, #30 TAB 1 Refill 01/25/21 Bumetanide (BUMETANIDE) 2 Mg Tablet, 1 TAB PO DAILY for HTN, #30 TAB 5 Refills 01/25/21 Sitagliptin Phosphate (JANUVIA) 50 Mg Tablet, 1 TAB PO DAILY for diabetes, #30 TAB 5 Refills 01/25/21 Metformin Hcl (METFORMIN HCL) 500 Mg Tablet, 1 TAB PO BID for diabetes, #60 TAB 3 Refills 01/25/21 Aspirin (ASPIRIN EC) 81 Mg Tablet.dr, 1 TAB PO DAILY for ANTICOAG, #30 TAB 3 Refills 01/24/21 Discontinued Reported Medications Metoprolol Tartrate (METOPROLOL TARTRATE) 50 Mg Tablet, 1 TAB PO BID for A fib, #60 TAB 5 Refills 01/25/21 Rivaroxaban (XARELTO) 20 Mg Tablet, 1 TAB PO DAILY for ANTICOAG for 30 Days, #30 TAB 0 Refills with food 01/24/21 Dabigatran Etexilate Mesylate (PRADAXA) 150 Mg Capsule, 1 CAP PO BID for supplement, #180 CAP 1 Refill 08/11/20 Sitagliptin Phosphate (JANUVIA) 50 Mg Tablet, 1 TAB PO DAILY for diabetes, #30 TAB 5 Refills 08/11/20 Digoxin (DIGOXIN) 125 Mcg Tablet, 125 MCG PO DAILY for AFIB/HEART FAILURE, TAB 08/11/20 Lisinopril (LISINOPRIL) 5 Mg Tablet, 1 TAB PO DAILY for high blood pressure, #30 TAB 5 Refills 08/11/20 Metoprolol Tartrate (METOPROLOL TARTRATE) 50 Mg Tablet, 1 TAB PO BID for high blood pressure, #60 TAB 5 Refills 08/11/20 Pravastatin Sodium (PRAVASTATIN SODIUM) 40 Mg Tablet, 1 TAB PO QHS for high cholesterol, #90 TAB 1 Refill 08/11/20 Trazodone Hcl (TRAZODONE HCL) 100 Mg Tablet, 1 TAB PO QHS for insomnia, #30 TAB 1 Refill 08/11/20 Spironolactone (SPIRONOLACTONE) 25 Mg Tablet, 1 TAB PO BID for fluid retention, #90 TAB 1 Refill 08/11/20 DENNIS CAMACHO MD Jan 28, 2021 11:24
[2021-01-28 13:44] LABS: BASO # 0.1 x10^3/uL (0.0-0.2); BASO % 1 % (0-3); EOS # 0.2 x10^3/uL (0.0-0.7); EOS % 1 % (0-3); HEMOGLOBIN 11.3 g/dL (13.0-17.5); LYMPH # 2.1 x10^3/uL (1.0-4.8); LYMPH % 16 % (24-48); MEAN CORPUSCULAR HEMOGLOBIN 26 pg (25-35); MEAN CORPUSCULAR HGB CONC 31 g/dL (31-37); MEAN CORPUSCULAR VOLUME 84 fL (79-100); MONO # 1.8 x10^3/uL (0.0-1.1); MONO % 13 % (0-9); NEUT # 9.2 x10^3uL (1.8-7.7); NEUT % 69 % (31-73); PLATELET COUNT 475 x10^3/uL (140-400); RED BLOOD COUNT 4.31 x10^6/uL (4.30-5.70); RED CELL DISTRIBUTION WIDTH 21.8 % (11.5-14.5); WHITE BLOOD COUNT 13.4 x10^3/uL (4.0-11.0)
[2021-01-28] MEDS ORDERED: MILRINONE 10 MG/10 ML VIAL. IV ONE (13:45)
[2021-01-28 13:49] LABS: ALBUMIN 2.7 g/dL (3.4-5.0); ALBUMIN/GLOBULIN RATIO 0.7 (1.0-1.7); CALCIUM 8.2 mg/dL (8.5-10.1); CREATININE 1.5 mg/dL (0.7-1.3); GFR 56.7; POTASSIUM 5.1 mmol/L (3.5-5.1); TOTAL BILIRUBIN 0.4 mg/dL (0.2-1.0); TOTAL PROTEIN 6.8 g/dL (6.4-8.2)
[2021-01-28] MEDS: MILRINONE 20MG/100ML PREMIX 100 ML IV PRN (14:52)
[2021-01-28] MEDS: RIVAROXABAN 10 MG TABLET. PO SCH (17:00)
[2021-01-28] MEDS: traZODone 100 MG TABLET. PO SCH (21:26)
[2021-01-28] MEDS: ATORVASTATIN CALCIUM 10 MG TABLET. PO SCH (21:26)
[2021-01-29] VITALS (26 sets, daily range): BP systolic 91–136; BP diastolic 49–110
[2021-01-29] MEDS: MILRINONE 20MG/100ML PREMIX 100 ML IV PRN ×2 (03:54→20:56)
--- NOTE | 2021-01-29 06:00 | NUR ---
Pt sitting up in chair at change of shift watching TV with call light in hand. Pt A&Ox4, pleasant and talkative with staff. Pt started on Milrinone gtt prior to shift r/t BLE edema with poor urine output. Pt ate HS snack independently and took medications whole without difficulty. Pt wears CPAP normally at home during night, placed on 2L NC during sleep. Pt slept great during night. Pt had total of 1300ml of urine out during shift. Pt had a standing scale weight of 161.3 this AM.
[2021-01-29] MEDS: oxyCODONE IR 5 MG TABLET PO PRN ×2 (06:09→20:57)
[2021-01-29 06:44] LABS: HEMATOCRIT 33.7 % (39.0-53.0); HEMOGLOBIN 10.6 g/dL (13.0-17.5); RED BLOOD COUNT 4.12 x10^6/uL (4.30-5.70); RED CELL DISTRIBUTION WIDTH 22.1 % (11.5-14.5); WHITE BLOOD COUNT 11.4 x10^3/uL (4.0-11.0)
[2021-01-29] MEDS: ASPIRIN ENTERIC COATED 81 MG TABLET.DR. PO SCH (07:50)
[2021-01-29] MEDS: metFORMIN 500 MG TABLET PO SCH ×2 (07:50→16:50)
[2021-01-29] MEDS: METOPROLOL TART IMMED RELEASE 50 MG TABLET PO SCH ×2 (07:50→20:56)
[2021-01-29] MEDS: LINAGLIPTIN 5 MG TABLET PO SCH (07:51)
--- NOTE | 2021-01-29 08:57 | PDOC ---
CARDIO Progress Notes Date & Time Date of Service DATE: 01/29/21 TIME: 08:53 Time of Evaluation 08:53 Subjective Notes LE edema slightly better, but still very swollen. belly tight Vitals Vitals Vital Signs Date Time Temp Pulse Resp B/P (MAP) Pulse Ox O2 Delivery O2 Flow Rate FiO2 01/29/21 08:26 Room Air 01/29/21 08:00 81 18 102/49 (66) 95 01/29/21 06:00 97.4 01/29/21 05:45 2.0 Weight Weight [ ] Input and Output I.O. Intake and Output 01/29/21 07:00 Intake Total 1280 ml Output Total 1300 ml Balance -20 ml Intake Oral 1180 ml IV Total 100 ml Output Urine Total 1300 ml Laboratory Labs Laboratory Tests Test 01/27/21 11:10 01/27/21 15:30 01/28/21 13:23 01/29/21 06:00 Sodium Level 133 mmol/L (136-145) 135 mmol/L (136-145) Potassium Level 4.8 mmol/L (3.5-5.1) 5.1 mmol/L (3.5-5.1) Chloride Level 100 mmol/L (98-107) 101 mmol/L (98-107) Carbon Dioxide Level 25 mmol/L (21-32) 28 mmol/L (21-32) Anion Gap 8 (6-14) 6 (6-14) Blood Urea Nitrogen 27 mg/dL (8-26) 34 mg/dL (8-26) Creatinine 1.4 mg/dL (0.7-1.3) 1.5 mg/dL (0.7-1.3) Estimated GFR (Cockcroft-Gault) 61.4 56.7 Glucose Level 137 mg/dL (70-99) 135 mg/dL (70-99) Calcium Level 8.6 mg/dL (8.5-10.1) 8.2 mg/dL (8.5-10.1) White Blood Count 13.2 x10^3/uL (4.0-11.0) 13.4 x10^3/uL (4.0-11.0) 11.4 x10^3/uL (4.0-11.0) Red Blood Count 4.66 x10^6/uL (4.30-5.70) 4.31 x10^6/uL (4.30-5.70) 4.12 x10^6/uL (4.30-5.70) Hemoglobin 12.0 g/dL (13.0-17.5) 11.3 g/dL (13.0-17.5) 10.6 g/dL (13.0-17.5) Hematocrit 38.9 % (39.0-53.0) 36.0 % (39.0-53.0) 33.7 % (39.0-53.0) Mean Corpuscular Volume 84 fL (79-100) 84 fL (79-100) 82 fL (79-100) Mean Corpuscular Hemoglobin 26 pg (25-35) 26 pg (25-35) 26 pg (25-35) Mean Corpuscular Hemoglobin Concent 31 g/dL (31-37) 31 g/dL (31-37) 31 g/dL (31-37) Red Cell Distribution Width 21.8 % (11.5-14.5) 21.8 % (11.5-14.5) 22.1 % (11.5-14.5) Platelet Count 352 x10^3/uL (140-400) 475 x10^3/uL (140-400) 240 x10^3/uL (140-400) Neutrophils (%) (Auto) 78 % (31-73) 69 % (31-73) Lymphocytes (%) (Auto) 11 % (24-48) 16 % (24-48) Monocytes (%) (Auto) 9 % (0-9) 13 % (0-9) Eosinophils (%) (Auto) 1 % (0-3) 1 % (0-3) Basophils (%) (Auto) 1 % (0-3) 1 % (0-3) Neutrophils # (Auto) 10.4 x10^3uL (1.8-7.7) 9.2 x10^3uL (1.8-7.7) Lymphocytes # (Auto) 1.5 x10^3/uL (1.0-4.8) 2.1 x10^3/uL (1.0-4.8) Monocytes # (Auto) 1.1 x10^3/uL (0.0-1.1) 1.8 x10^3/uL (0.0-1.1) Eosinophils # (Auto) 0.2 x10^3/uL (0.0-0.7) 0.2 x10^3/uL (0.0-0.7) Basophils # (Auto) 0.1 x10^3/uL (0.0-0.2) 0.1 x10^3/uL (0.0-0.2) BUN/Creatinine Ratio 23 (6-20) Total Bilirubin 0.4 mg/dL (0.2-1.0) Aspartate Amino Transf (AST/SGOT) 67 U/L (15-37) Alanine Aminotransferase (ALT/SGPT) 79 U/L (16-63) Alkaline Phosphatase 75 U/L (46-116) Total Protein 6.8 g/dL (6.4-8.2) Albumin 2.7 g/dL (3.4-5.0) Albumin/Globulin Ratio 0.7 (1.0-1.7) Physical Exams HEENT: Neck Supple W Full Motion Chest: Symmetric Lungs: Other (diminished bases) Heart: irregularly irregular (AFIB, rate controlled ) Abdomen: Other (tight, distended. Non-tender ) Extremities: Other (wound to RLE, dressing intact. Bilateral LE very tight, edematous. ) Neurology: alert, oriented, follow commands Assessment Assessment 1. Acute on chronic diastolic heart failure; on milrinone. Needs significant n egative fluid balance 2. Probable cor pulmonale 3. H/o NICM with LVEF 25%. Subsequent echo 11/13 showed LV recovery with pre served EF 4. Permanent AFIB presenting with RVR secondary to not taking his metoprolol. HR now controlled with metoprolol, Cardizem. He was recently referred for LAAO as he was deemed a poor candidate for long-term anticoagulation secondary to anemia, GIB. However, he was noted to have thrombus in his left atrial appendage and hence he was placed on Xarelto and the procedure was deferred. Hgb stable. Follow-up with EP service upon discharge. 5. Hypertension: Controlled 6. Hyperlipidemia: Statin therapy 7. Diabetes mellitus type 2: Per IM 8. h/o DVT/PE 9. CHARLES, hyperkalemia; s/p IVFs. Cr at 1.5 Recommendations Continue milrinone infusion Add metolazone Start Lasix gtt Monitor UOP closely Daily standing weight Repeat BMP this evening. FR Supportive care ISAURO ORLANDO APRN Jan 29, 2021 08:56
[2021-01-29] MEDS: FUROSEMIDE INJ 100 MG in IV NORMAL SALINE 100ML 90 ML IV PRN (11:15)
[2021-01-29] MEDS: metOLazone 5 MG TABLET PO SCH (11:16)
--- NOTE | 2021-01-29 11:28 | PN ---
DATE: 01/29/2021 SUBJECTIVE: The patient is sitting comfortably in his chair, in no apparent distress. He continued to complain of swelling of his legs. He was started on milrinone drip overnight and was treated also with IV Lasix and he has about 1300 mL output overnight. He was seen by the nurse practitioner of the Cardiology team and he was started on Lasix drip as well as metolazone together with milrinone drip. PHYSICAL EXAMINATION: GENERAL: When I saw him this morning, he looked well and was clearly in no apparent respiratory distress. No pallor, jaundice, cyanosis or thyromegaly. No jugular venous distention. Mild bilateral lower limb edema. VITAL SIGNS: His heart rate was 89, blood pressure was 120/73, temperature was 97.4, respiratory rate was 18 and oxygen saturation was 95% on room air. HEAD, EYES, EARS, NOSE, AND THROAT: Normocephalic, atraumatic. NECK: Supple. HEART: Normal first and second heart sounds, no gallop or murmur. CHEST: Shows central trachea, equal bilateral chest expansion, air entry, vesicular breath sounds. No crepitation or rhonchi. ABDOMEN: Distended, soft, nontender. NEUROLOGIC: He was grossly intact. His intake was 360, output was 550. LABORATORY DATA: Today's labs are still pending at the time of this dictation. ASSESSMENT: 1. Acute on chronic diastolic congestive heart failure. Apparently, the patient is known to have nonischemic cardiomyopathy with an ejection fraction was only 25%. Recent echocardiogram showed recovery of left ventricular systolic function and preserved ejection fraction. The patient continued to be fluid overloaded. Possibly has severe pulmonary hypertension and cor pulmonale, for which he is now on milrinone drip together with Lasix drip as well as metolazone. 2. Atrial fibrillation with rapid ventricular response, rate controlled, well anticoagulated. 3. Acute on chronic kidney injury. 4. Hypertension. 5. Hyperlipidemia. 6. History of deep vein thrombosis as well as pulmonary embolism. 7. Type 2 diabetes mellitus. PLAN: To continue with the Lasix drip. Continue with milrinone drip. Metolazone was added. Continue with linagliptin and metformin for his diabetes together with diltiazem and metoprolol to control the heart rate, and rivaroxaban for stroke prevention. ARNAV DR: aFrnaz TID: [id number]
[2021-01-29 12:12] LABS: ALBUMIN 2.9 g/dL (3.4-5.0); ALBUMIN/GLOBULIN RATIO 0.7 (1.0-1.7); CALCIUM 8.7 mg/dL (8.5-10.1); CREATININE 1.4 mg/dL (0.7-1.3); GFR 61.4; POTASSIUM 5.1 mmol/L (3.5-5.1); TOTAL BILIRUBIN 0.5 mg/dL (0.2-1.0)
[2021-01-29] MEDS: RIVAROXABAN 10 MG TABLET. PO SCH (16:50)
[2021-01-29] MEDS: ATORVASTATIN CALCIUM 10 MG TABLET. PO SCH (20:57)
[2021-01-29] MEDS: traZODone 100 MG TABLET. PO SCH (20:57)
[2021-01-30] VITALS (14 sets, daily range): BP systolic 98–139; BP diastolic 66–99
[2021-01-30] MEDS ORDERED: FUROSEMIDE 100 MG/10 ML VIAL ONE ×2 (04:36→23:10)
[2021-01-30] MEDS: FUROSEMIDE INJ 100 MG in IV NORMAL SALINE 100ML 90 ML IV PRN (05:21)
--- NOTE | 2021-01-30 05:50 | NUR ---
Pt sitting up in chair at change of shift watching [employer] game on TV. Pt A&Ox4, pleasant and cooperative with cares and assessments. Pt on Lasix & Milrinone gtt. Pt with saturated dressing to right lower leg, dressing change completed. Pt ate HS snack independently and took medications whole without difficulty. Pt placed on 2L NC during sleep since CPAP is not here. Pt slept great during night but up frequently to void in urinal. Pt had total of 4300ml of urine out during this shift. Pt had a standing scale weight of 159.8 this AM. Pt feeling that his swelling has improved.
--- NOTE | 2021-01-30 08:29 | PDOC ---
CARDIO Progress Notes Date & Time Date of Service DATE: 01/30/21 TIME: 08:29 Time of Evaluation 08:29 Subjective Notes Good amount of urination overnight. Still feels edematous. Vitals Vitals Vital Signs Date Time Temp Pulse Resp B/P (MAP) Pulse Ox O2 Delivery O2 Flow Rate FiO2 01/30/21 06:00 81 12 117/88 (98) 98 Nasal Cannula 2.0 01/30/21 05:00 97.6 Weight Weight [ ] Input and Output I.O. Intake and Output 01/30/21 07:00 Intake Total 1185 ml Output Total 5700 ml Balance -4515 ml Intake Oral 985 ml IV Total 200 ml Output Urine Total 5700 ml Laboratory Labs Laboratory Tests Test 01/28/21 13:23 01/29/21 06:00 01/29/21 11:25 White Blood Count 13.4 x10^3/uL (4.0-11.0) 11.4 x10^3/uL (4.0-11.0) Red Blood Count 4.31 x10^6/uL (4.30-5.70) 4.12 x10^6/uL (4.30-5.70) Hemoglobin 11.3 g/dL (13.0-17.5) 10.6 g/dL (13.0-17.5) Hematocrit 36.0 % (39.0-53.0) 33.7 % (39.0-53.0) Mean Corpuscular Volume 84 fL (79-100) 82 fL (79-100) Mean Corpuscular Hemoglobin 26 pg (25-35) 26 pg (25-35) Mean Corpuscular Hemoglobin Concent 31 g/dL (31-37) 31 g/dL (31-37) Red Cell Distribution Width 21.8 % (11.5-14.5) 22.1 % (11.5-14.5) Platelet Count 475 x10^3/uL (140-400) 240 x10^3/uL (140-400) Neutrophils (%) (Auto) 69 % (31-73) Lymphocytes (%) (Auto) 16 % (24-48) Monocytes (%) (Auto) 13 % (0-9) Eosinophils (%) (Auto) 1 % (0-3) Basophils (%) (Auto) 1 % (0-3) Neutrophils # (Auto) 9.2 x10^3uL (1.8-7.7) Lymphocytes # (Auto) 2.1 x10^3/uL (1.0-4.8) Monocytes # (Auto) 1.8 x10^3/uL (0.0-1.1) Eosinophils # (Auto) 0.2 x10^3/uL (0.0-0.7) Basophils # (Auto) 0.1 x10^3/uL (0.0-0.2) Sodium Level 135 mmol/L (136-145) 133 mmol/L (136-145) Potassium Level 5.1 mmol/L (3.5-5.1) 5.1 mmol/L (3.5-5.1) Chloride Level 101 mmol/L (98-107) 98 mmol/L (98-107) Carbon Dioxide Level 28 mmol/L (21-32) 32 mmol/L (21-32) Anion Gap 6 (6-14) 3 (6-14) Blood Urea Nitrogen 34 mg/dL (8-26) 31 mg/dL (8-26) Creatinine 1.5 mg/dL (0.7-1.3) 1.4 mg/dL (0.7-1.3) Estimated GFR (Cockcroft-Gault) 56.7 61.4 BUN/Creatinine Ratio 23 (6-20) 22 (6-20) Glucose Level 135 mg/dL (70-99) 136 mg/dL (70-99) Calcium Level 8.2 mg/dL (8.5-10.1) 8.7 mg/dL (8.5-10.1) Total Bilirubin 0.4 mg/dL (0.2-1.0) 0.5 mg/dL (0.2-1.0) Aspartate Amino Transf (AST/SGOT) 67 U/L (15-37) 46 U/L (15-37) Alanine Aminotransferase (ALT/SGPT) 79 U/L (16-63) 74 U/L (16-63) Alkaline Phosphatase 75 U/L (46-116) 86 U/L (46-116) Total Protein 6.8 g/dL (6.4-8.2) 7.0 g/dL (6.4-8.2) Albumin 2.7 g/dL (3.4-5.0) 2.9 g/dL (3.4-5.0) Albumin/Globulin Ratio 0.7 (1.0-1.7) 0.7 (1.0-1.7) Physical Exams HEENT: Neck Supple W Full Motion Chest: Symmetric Lungs: Other (diminished bases) Heart: irregularly irregular (AFIB, rate controlled ) Abdomen: Other (tight, distended. Non-tender ) Extremities: Other (wound to RLE, dressing intact. Bilateral LE very tight, edematous. ) Neurology: alert, oriented, follow commands Assessment Assessment 1. Acute on chronic diastolic heart failure; on milrinone. Good UOP with Lasix, metolazone, milrinone combination. better compensated 2. Probable cor pulmonale 3. H/o NICM with LVEF 25%. Subsequent echo 11/13 showed LV recovery with preserved EF 4. Permanent AFIB presenting with RVR secondary to not taking his metoprolol. HR now controlled with metoprolol, Cardizem. He was recently referred for LAAO as he was deemed a poor candidate for long-term anticoagulation secondary to anemia, GIB. However, he was noted to have thrombus in his left atrial appendage and hence he was placed on Xarelto and the procedure was deferred. Hgb stable. Follow-up with EP service upon discharge. 5. Hypertension: Controlled 6. Hyperlipidemia: Statin therapy 7. Diabetes mellitus type 2: Per IM 8. h/o DVT/PE 9. CHARLES, hyperkalemia; Cr stable at 1.4 Recommendations Continue milrinone, Lasix gtt, metolazone Monitor UOP, renal function 1200cc FR Daily standing weight Anticipate discharge tomorrow Supportive care ISAURO ORLANDO APRN Jan 30, 2021 08:29
[2021-01-30 08:43] LABS: CALCIUM 9.1 mg/dL (8.5-10.1); CREATININE 1.4 mg/dL (0.7-1.3); GFR 61.4; POTASSIUM 4.3 mmol/L (3.5-5.1)
[2021-01-30] MEDS: LINAGLIPTIN 5 MG TABLET PO SCH (08:54)
[2021-01-30] MEDS: ASPIRIN ENTERIC COATED 81 MG TABLET.DR. PO SCH (08:54)
[2021-01-30] MEDS: metFORMIN 500 MG TABLET PO SCH ×2 (08:54→17:54)
[2021-01-30] MEDS: METOPROLOL TART IMMED RELEASE 50 MG TABLET PO SCH ×2 (08:54→22:05)
[2021-01-30] MEDS: oxyCODONE IR 5 MG TABLET PO PRN ×3 (08:55→22:08)
[2021-01-30] MEDS: metOLazone 5 MG TABLET PO SCH (09:00)
--- NOTE | 2021-01-30 13:54 | PN ---
DATE: 01/30/2021 ATTENDING PHYSICIAN: Dr. Reynolds. SUBJECTIVE: The patient is comfortable. He is in no acute distress. He is diuresing, but he still remains edematous. He had excellent urine output due to the Lasix drip. OBJECTIVE FINDINGS: VITAL SIGNS: Blood pressure this morning is 117/88 mmHg, heart rate is between 80 and 90, irregularly irregular. Oxygen saturation 96% on room air. He is afebrile. HEENT: Head is without trauma. Pupils are reactive. Sclerae nonicteric. NECK: Neck veins were not distended. LUNGS: Good breath sounds bilaterally. CARDIOVASCULAR: Regular heart tones, irregularly irregular. No gallops. ABDOMEN: Obese, protuberant. No organomegaly. Bowel sounds are hypoactive. EXTREMITIES: Showed 4+ pitting edema extending all the way up to his thighs. NEUROLOGIC: Function focally intact. LABORATORY DATA: Creatinine has been stable at 1.4 mg/dL, potassium 4.3 mEq. Hemoglobin maintained at 10.6 g/dL. ASSESSMENT: 1. A 65-year-old gentleman with acute on chronic diastolic congestive heart failure. He is volume overloaded. 2. Known ischemic cardiomyopathy with ejection fraction of 25%. 3. Paroxysmal atrial fibrillation, rate controlled. 4. Chronic anticoagulation. 5. Acute on chronic kidney injury, stable. 6. Essential hypertension. 7. Morbid obesity. 8. History of deep venous thrombosis and pulmonary embolism. 9. Type 2 diabetes. PLAN: 1. Continue diuresis per Cardiology. 2. Daily weights. 3. Fluid restriction. 4. Serial chemistries. 5. I still estimate another 20-30 pounds of excess fluid in his lower extremities. CAROL/ADAIR DR: CAROL/davion TID: [id number]
[2021-01-30] MEDS: MILRINONE 20MG/100ML PREMIX 100 ML IV PRN (14:12)
--- NOTE | 2021-01-30 15:00 | NUR ---
Wound/Ostomy Care Wound Type/Assessment: Wound consult for large blister to RLE. Pt has edema in BLE that has caused large blister. Cleansed, assessed, and redressed wound. Treatment Recommendations/Plan: Cleanse wound, apply aquacel ag, ABD and kerlix. Apply medigrip G x 2 and elevate legs at all times. Change dressing daily and PRN for drainage. Education provided: WC POC, importance of elevation, reduced sodium diet, and PU prevention Offloading surface/device: pt is a self turn Recommended Referrals/Tests: will need follow up in Wound clinic after discharge Discharge Recommendations for dressings: see above
[2021-01-30] MEDS: RIVAROXABAN 10 MG TABLET. PO SCH (17:54)
[2021-01-30] MEDS: ATORVASTATIN CALCIUM 10 MG TABLET. PO SCH (22:05)
[2021-01-30] MEDS: traZODone 100 MG TABLET. PO SCH (22:05)
[2021-01-31] VITALS (10 sets, daily range): BP systolic 92–132; BP diastolic 59–85
[2021-01-31] MEDS: FUROSEMIDE INJ 100 MG in IV NORMAL SALINE 100ML 90 ML IV PRN (01:20)
[2021-01-31] MEDS: MILRINONE 20MG/100ML PREMIX 100 ML IV PRN (04:08)
[2021-01-31] MEDS: metOLazone 5 MG TABLET PO SCH (08:02)
[2021-01-31] MEDS: LINAGLIPTIN 5 MG TABLET PO SCH (08:02)
[2021-01-31] MEDS: METOPROLOL TART IMMED RELEASE 50 MG TABLET PO SCH (08:02)
[2021-01-31] MEDS: ASPIRIN ENTERIC COATED 81 MG TABLET.DR. PO SCH (08:02)
[2021-01-31] MEDS: metFORMIN 500 MG TABLET PO SCH (08:02)
--- NOTE | 2021-01-31 08:44 | PDOC ---
CARDIO Progress Notes Date & Time Date of Service DATE: 01/31/21 TIME: 08:43 Time of Evaluation 08:43 Subjective Notes edema better Vitals Vitals Vital Signs Date Time Temp Pulse Resp B/P (MAP) Pulse Ox O2 Delivery O2 Flow Rate FiO2 01/31/21 08:02 78 119/83 01/31/21 06:09 17 94 Nasal Cannula 2.0 01/30/21 19:00 98.2 Weight Weight [ ] Input and Output I.O. Intake and Output 01/31/21 07:00 Intake Total 660 ml Output Total 6100 ml Balance -5440 ml Intake Oral 660 ml Output Urine Total 6100 ml Laboratory Labs Laboratory Tests Test 01/29/21 11:25 01/30/21 08:28 Sodium Level 133 mmol/L (136-145) 136 mmol/L (136-145) Potassium Level 5.1 mmol/L (3.5-5.1) 4.3 mmol/L (3.5-5.1) Chloride Level 98 mmol/L (98-107) 94 mmol/L (98-107) Carbon Dioxide Level 32 mmol/L (21-32) 34 mmol/L (21-32) Anion Gap 3 (6-14) 8 (6-14) Blood Urea Nitrogen 31 mg/dL (8-26) 32 mg/dL (8-26) Creatinine 1.4 mg/dL (0.7-1.3) 1.4 mg/dL (0.7-1.3) Estimated GFR (Cockcroft-Gault) 61.4 61.4 BUN/Creatinine Ratio 22 (6-20) Glucose Level 136 mg/dL (70-99) 124 mg/dL (70-99) Calcium Level 8.7 mg/dL (8.5-10.1) 9.1 mg/dL (8.5-10.1) Total Bilirubin 0.5 mg/dL (0.2-1.0) Aspartate Amino Transf (AST/SGOT) 46 U/L (15-37) Alanine Aminotransferase (ALT/SGPT) 74 U/L (16-63) Alkaline Phosphatase 86 U/L (46-116) Total Protein 7.0 g/dL (6.4-8.2) Albumin 2.9 g/dL (3.4-5.0) Albumin/Globulin Ratio 0.7 (1.0-1.7) Physical Exams HEENT: Neck Supple W Full Motion Chest: Symmetric Lungs: Other (diminished bases) Heart: irregularly irregular (AFIB, rate controlled ) Abdomen: Other (distended. Non-tender ) Extremities: Other (wound to RLE, dressing intact. Bilateral LE edema improved) Neurology: alert, oriented, follow commands Assessment Assessment 1. Acute on chronic diastolic heart failure; on milrinone. Good UOP with Lasix, metolazone, milrinone combination. much better compensated 2. Probable cor pulmonale 3. H/o NICM with LVEF 25%. Subsequent echo 11/13 showed LV recovery with preserved EF 4. Permanent AFIB presenting with RVR secondary to not taking his metoprolol. HR now controlled with metoprolol, Cardizem. He was recently referred for LAAO as he was deemed a poor candidate for long-term anticoagulation secondary to anemia, GIB. However, he was noted to have thrombus in his left atrial appendage and hence he was placed on Xarelto and the procedure was deferred. Hgb stable. Follow-up with EP service upon discharge. 5. Hypertension: Controlled 6. Hyperlipidemia: Statin therapy 7. Diabetes mellitus type 2: Per IM 8. h/o DVT/PE 9. CHARLES, hyperkalemia; Cr stable at 1.4 Recommendations Awaiting repeat labs Discontinue Lasix gtt, milrinone gtt Resume oral Lasix therapy 2000cc FR, 2Gm Na diet, daily weight May discharge from a CV standpoint and follow up in our office with Dr. Renner Supportive care ISAURO ORLANDO APRN Jan 31, 2021 08:44
[2021-01-31] MEDS ORDERED: oxyCODONE/APAP 5/325 1 TAB TABLET PO PRN (09:15)
[2021-01-31] MEDS ORDERED: BUMETANIDE 1 MG TABLET PO SCH (09:15)
--- NOTE | 2021-01-31 09:36 | DS ---
DATE OF DISCHARGE: 01/31/2021 ATTENDING PHYSICIAN: Dr. Reynolds. FINAL DISCHARGE DIAGNOSES: 1. Acute on chronic diastolic congestive heart failure, compensated. 2. History of ischemic cardiomyopathy with diminished ejection fraction. 3. Paroxysmal atrial fibrillation, rate controlled. 4. Chronic anticoagulation. 5. Acute on chronic kidney injury, stable. 6. Essential hypertension. 7. Morbid obesity. 8. History of deep venous thrombosis. 9. Type 2 diabetes mellitus. HISTORY AND PHYSICAL: The patient is a 65-year-old gentleman admitted with profound edema and swelling and acute on chronic diastolic heart failure. PHYSICAL EXAMINATION: Please see the dictated note. PERTINENT LABORATORY AND X-RAY STUDIES: Admission hemoglobin was 11.0 g/dL, prior to discharge was 10.6 g. Chemistry panel prior to discharge showed a stable sodium 136 mEq, potassium 4.3 mEq, creatinine stable at 1.4 mg/dL, BUN 32, nonfasting blood sugar 124. Imaging studies were done on admission chest x-ray showed bilateral diffuse interstitial pulmonary edema. COURSE IN HOSPITAL: The patient was admitted. Cardiology consultation was entertained and their recommendation is on the chart. He responded well to diuresis and he was able to get at least 25-30 pounds net loss of fluid. Creatinine was stable, suggesting that this is all third space fluid. By the seventh hospital day, his vital signs were quite stable. He was ambulating with some assistance. He still has some residual edema, but he was ready for discharge. At this time, Cardiology Service will see him as outpatient for followup. I also suggested a followup visit with Kayden Cruz in 2 weeks' time. His discharge meds are as follows: He will continue his diltiazem 360 ER daily, metoprolol 50 mg b.i.d., oxycodone 5 mg every 6 hours p.r.n. pain, aspirin one daily, Bumex 2 mg daily, metformin 500 mg b.i.d., pravastatin, Xarelto 20 mg daily, Januvia, and trazodone. The patient was then discharged from our hospital in stable condition with explicit instruction and followup care. Total discharge time spent is [address]: Tonio TID: [id number] CC: PEYTON ROWAN
[2021-01-31 10:10] LABS: BASO # 0.1 x10^3/uL (0.0-0.2); BASO % 1 % (0-3); EOS # 0.2 x10^3/uL (0.0-0.7); EOS % 2 % (0-3); HEMATOCRIT 35.7 % (39.0-53.0); LYMPH # 1.2 x10^3/uL (1.0-4.8); LYMPH % 10 % (24-48); MEAN CORPUSCULAR HEMOGLOBIN 25 pg (25-35); MEAN CORPUSCULAR HGB CONC 31 g/dL (31-37); MEAN CORPUSCULAR VOLUME 82 fL (79-100); MONO # 1.4 x10^3/uL (0.0-1.1); MONO % 12 % (0-9); NEUT # 9.3 x10^3uL (1.8-7.7); NEUT % 76 % (31-73); PLATELET COUNT 542 x10^3/uL (140-400); RED BLOOD COUNT 4.34 x10^6/uL (4.30-5.70); RED CELL DISTRIBUTION WIDTH 21.3 % (11.5-14.5); WHITE BLOOD COUNT 12.2 x10^3/uL (4.0-11.0)
[2021-01-31 10:21] LABS: ALBUMIN 3.1 g/dL (3.4-5.0); ALBUMIN/GLOBULIN RATIO 0.7 (1.0-1.7); CALCIUM 9.5 mg/dL (8.5-10.1); CREATININE 1.5 mg/dL (0.7-1.3); GFR 56.7; POTASSIUM 3.9 mmol/L (3.5-5.1); TOTAL BILIRUBIN 0.6 mg/dL (0.2-1.0); TOTAL PROTEIN 7.6 g/dL (6.4-8.2)
--- NOTE | 2021-01-31 12:01 | NUR ---
VSS. DAUGHERTY. Discharge orders placed this AM. Pt set up with [facility]. IVs discontinued. Discharge education provided. Pt belongings gathered and sent with pt. Discharged to private vehicle @ 1200.
== END 2021-01-31 12:00 | disposition home health service (06) | DRG 291 ==
LOC: ER 09:06 → ICU 13:07 → 1 SOUTH 01-27 13:11 → ICU 01-28 16:55
PROVIDERS: ADMIT Internal Medicine; ATTEND Internal Medicine
DX: I13.0 Hypertensive heart and chronic kidney disease with heart failure and stage 1 through stage 4 chronic kidney disease, or unspecified chronic kidney disease (principal); I50.33 Acute on chronic diastolic (congestive) heart failure; N17.9 Acute kidney failure, unspecified; I48.21 Permanent atrial fibrillation; Z68.1 Body mass index [BMI] 19.9 or less, adult; I42.8 Other cardiomyopathies; E11.22 Type 2 diabetes mellitus with diabetic chronic kidney disease; N18.9 Chronic kidney disease, unspecified; E78.00 Pure hypercholesterolemia, unspecified; I25.10 Atherosclerotic heart disease of native coronary artery without angina pectoris; E66.01 Morbid (severe) obesity due to excess calories; E78.5 Hyperlipidemia, unspecified; E87.5 Hyperkalemia; R91.8 Other nonspecific abnormal finding of lung field; T44.7X6A Underdosing of beta-adrenoreceptor antagonists, initial encounter; F41.9 Anxiety disorder, unspecified; I25.5 Ischemic cardiomyopathy; F32.A Depression, unspecified; Z20.822 Contact with and (suspected) exposure to COVID-19; Z86.718 Personal history of other venous thrombosis and embolism; Z86.711 Personal history of pulmonary embolism; Z82.49 Family history of ischemic heart disease and other diseases of the circulatory system; Z79.01 Long term (current) use of anticoagulants; Y92.89 Other specified places as the place of occurrence of the external cause
CPT/HCPCS: 36415; 71045; 74176; 80048; 80053; 81001; 82553; 83605; 83615; 83690; 83735; 83880; 84443; 84484; 85007; 85025; 85027; 85610; 85730; 87426; 90471; 90686; 93005; 96365; 96366; 96376; J2260; J3490; U0003; 97110; 97116; 97530; 99285-25; J7030

== ENCOUNTER 2021-02-19 16:44 | Emergency (ER) | payer MEDICARE ==
[~2021-02-19] VITALS: Ht 188 cm; Wt 165.0 kg
[~2021-02-19 16:44] MED LIST changes: +ASPI-889 PO; +DILT360T7 PO; +OXYC5TAB4 PO; +RIVA20TA2 PO
--- NOTE | 2021-02-19 18:15 | PHYS DOC ---
Past History Past Medical History: A-Fib, Anxiety, CAD, CHF, Depression, Diabetes, DVT, High Cholesterol, Heart Disease, Hypertension Additional Past Medical Histor: PE (ADE PRICE APRN) Past Surgical History: Other Additional Past Surgical Histo: Thrombectomy (ADE PRICE APRN) Smoking: Non-smoker Alcohol Use: Rarely Drug Use: None (ADE PRICE APRN) General Adult EDM: Chief Complaint: LOWER EXTREMITY SWELLING HPI: HPI: Patient is a 65-year-old male who presents to the emergency department for bilateral lower extremity edema that is been going on for 3 months. Patient is also reporting increased weight gain. Patient was admitted at this hospital on January 24 for CHF exacerbation and A. fib with RVR. Patient takes 2 mg of Bumex but states that has not been improving his symptoms. Patient denies any shortness of breath, chest pain or fevers. (ADE PRICE APRN) Review of Systems: Review of Systems: Constitutional: See HPI Respiratory: See HPI Cardiovascular: See HPI Musculoskeletal: See HPI Integument: See HPI (ADE PRICE APRN) Allergies: Allergies: Allergies Coded Allergies Type Severity Reaction Last Updated Verified No Known Drug Allergies 01/24/21 No (ADE PRICE APRN) Physical Exam: PE: Constitutional: Well developed, well nourished, no acute distress, non-toxic appearance. [] HENT: Normocephalic, atraumatic, bilateral external ears normal, oropharynx moist, no oral exudates, nose normal. [] Eyes: PERRL, EOMI, conjunctiva normal, no discharge. [] Neck: Normal range of motion, no tenderness, supple, no stridor. [] Cardiovascular:Heart rate regular rhythm, no murmur [] Lungs & Thorax: Bilateral breath sounds clear to auscultation [] Abdomen: Bowel sounds normal, soft, obese, no tenderness, no masses, no pulsatile masses. [] Skin: Warm, dry, no erythema, no rash, patient has ulceration noted to the anterior aspect of right lower leg that appears to be healing well without any signs of infection. [] Back: Normal range of motion Extremities: No tenderness, no cyanosis, no clubbing, ROM intact, 2+ pitting edema to bilateral lower extremities. Neurologic: Alert and oriented X 3, normal motor function, normal sensory function, no focal deficits noted. [] Psychologic: Affect normal, judgement normal, mood normal. [] (ADE PRICE APRN) Current Patient Data: Labs: Laboratory Tests Test 02/19/21 18:28 White Blood Count 10.5 x10^3/uL Red Blood Count 4.16 x10^6/uL Hemoglobin 10.6 g/dL Hematocrit 34.9 % Mean Corpuscular Volume 84 fL Mean Corpuscular Hemoglobin 26 pg Mean Corpuscular Hemoglobin Concent 31 g/dL Red Cell Distribution Width 22.4 % Platelet Count 373 x10^3/uL Neutrophils (%) (Auto) 70 % Lymphocytes (%) (Auto) 15 % Monocytes (%) (Auto) 12 % Eosinophils (%) (Auto) 2 % Basophils (%) (Auto) 1 % Neutrophils # (Auto) 7.4 x10^3uL Lymphocytes # (Auto) 1.6 x10^3/uL Monocytes # (Auto) 1.2 x10^3/uL Eosinophils # (Auto) 0.2 x10^3/uL Basophils # (Auto) 0.1 x10^3/uL Platelet Estimate Pending Sodium Level 140 mmol/L Potassium Level 5.2 mmol/L Chloride Level 102 mmol/L Carbon Dioxide Level 33 mmol/L Anion Gap 5 Blood Urea Nitrogen 24 mg/dL Creatinine 1.4 mg/dL Estimated GFR (Cockcroft-Gault) 61.4 BUN/Creatinine Ratio 17 Glucose Level 119 mg/dL Calcium Level 8.7 mg/dL Total Bilirubin 0.4 mg/dL Aspartate Amino Transf (AST/SGOT) 16 U/L Alanine Aminotransferase (ALT/SGPT) 22 U/L Alkaline Phosphatase 84 U/L Troponin I High Sensitivity 36 ng/L AV-Dpi-U-Type Natriuretic Peptide 1718 pg/mL Total Protein 6.8 g/dL Albumin 3.2 g/dL Albumin/Globulin Ratio 0.9 Vital Signs: Vital Signs Date Time Temp Pulse Resp B/P (MAP) Pulse Ox O2 Delivery O2 Flow Rate FiO2 02/19/21 17:44 98.3 79 16 124/70 (88) 97 Room Air (ADE PRICE APRN) EKG: EKG: EKG performed by ER staff at 1925 shows A. fib with a rate of 69, no STEMI read by Dr. Garrett at 1928. Patient has a history of A. fib and takes Xarelto and Cardizem. [] (ADE PRICE APRN) Radiology/Procedures: Radiology/Procedures: []REASON: increased edema ON LOWER EXT PROCEDURE: PORTABLE CHEST 1V XR CHEST 1V Clinical Indication: Reason: increased edema ON LOWER EXT / Comparison: AP chest January 24, 2021. Findings: Cardiac size upper limits of normal, unchanged. Lungs are clear. There is no pneumothorax. No pleural effusion is appreciated. No acute bone abnormality. IMPRESSION: No acute cardiopulmonary process. Electronically signed by: Josiah Kitchen MD (02/19/2021 6:10 PM) [facility] DICTATED AND SIGNED BY: JOSIAH KITCHEN MD DATE: 02/19/211805 CC: EMERGENCY,DEPARTMENT; ANU MARS; ADE PRICE APRN ~MTH0 0 (ADE PRICE APRN) Heart Score: C/O Chest Pain: No Risk Factors: Risk Factors: DM, Current or recent (<one month) smoker, HTN, HLP, family history of CAD, obesity. Risk Scores: Score 0 - 3: 2.5% MACE over next 6 weeks - Discharge Home Score 4 - 6: 20.3% MACE over next 6 weeks - Admit for Clinical Observation Score 7 - 10: 72.7% MACE over next 6 weeks - Early Invasive Strategies (ADE PRICE APRN) Course & Med Decision Making: Course & Med Decision Making Pertinent Labs and Imaging studies reviewed. (See chart for details) [] Patient presents to the emergency department for bilateral lower extremity edema x3 months. Patient reports that he takes 2 mg of Bumex and has been taking it as directed. Patient reports that he was admitted at this hospital on January 24 and his symptoms have not improved since being admitted. Patient does have a wound to his right anterior lower leg which she follows up with [facility] wound care. The wound appears to be healing well without any redness, warmth, swelling. Patient CBC is unremarkable. Patient's potassium is 5.2 which is consistent with his previous lab findings. He had a negative troponin. Chest x-ray did not show any pulmonary edema. At 1.4 consistent with his previous lab findings. Patient's BNP is 1718 consistent with his previous lab findings. His EHMRG was -38.68. I discussed with patient his lab findings I offered admission to the patient for his CHF and bilateral lower extremity edema which she reported that he would like to go home and continue taking his medications and follow-up with his doctor Dr. Mars, his vital signs are stable and he is in no acute distress. Discussed these findings with supervising physician and determine care plan. I discussed with patient all findings and diagnostic testing as well as the need to follow-up with PCP for further evaluation and treatment or return to the ER if any new or worsening symptoms. Strict return precautions were also discussed at length. Patient voiced understanding and agreement with the plan. Patient is hemodynamically stable at the time of disposition. (ADE PRICE APRN) Course & Med Decision Making Did not see or evaluate patient. Did not discuss patient with COTTON CLASSER AIDE. Agree with COTTON CLASSER AIDE's work-up and disposition per note. (LALO GARRETT MD) Dragon Disclaimer: Dragon Disclaimer: This electronic medical record was generated, in whole or in part, using a voice recognition dictation system. (ADE PRICE APRN) Departure Departure: Impression: Primary Impression: Lower extremity edema Additional Impression: Congestive heart failure Qualified Codes: I50.9 - Heart failure, unspecified Disposition: HOME / SELF CARE / HOMELESS Condition: GOOD Referrals: ANU MARS (PCP) Patient Instructions: Edema Additional Instructions: You were seen in the emergency department for increased bilateral lower extremity edema. At today's visit your BNP was 1718. Continue to take your Bumex and your other medications as prescribed. Please follow-up with your primary care provider tomorrow regarding your ER visit. Please return to the emergency department if you develop shortness of breath, chest pain, high fevers refractory to treatment, any signs of infection surrounding your leg wound or increased edema. ADE PRICE APRN Feb 19, 2021 18:15 LALO GARRETT MD Feb 19, 2021 21:25
[2021-02-19 18:49] LABS: BASO # 0.1 x10^3/uL (0.0-0.2); BASO % 1 % (0-3); EOS # 0.2 x10^3/uL (0.0-0.7); EOS % 2 % (0-3); HEMATOCRIT 34.9 % (39.0-53.0); HEMOGLOBIN 10.6 g/dL (13.0-17.5); LYMPH # 1.6 x10^3/uL (1.0-4.8); LYMPH % 15 % (24-48); MEAN CORPUSCULAR HEMOGLOBIN 26 pg (25-35); MEAN CORPUSCULAR HGB CONC 31 g/dL (31-37); MEAN CORPUSCULAR VOLUME 84 fL (79-100); MONO # 1.2 x10^3/uL (0.0-1.1); MONO % 12 % (0-9); NEUT # 7.4 x10^3uL (1.8-7.7); NEUT % 70 % (31-73); PLATELET COUNT 373 x10^3/uL (140-400); RED BLOOD COUNT 4.16 x10^6/uL (4.30-5.70); RED CELL DISTRIBUTION WIDTH 22.4 % (11.5-14.5); WHITE BLOOD COUNT 10.5 x10^3/uL (4.0-11.0)
[2021-02-19 18:58] LABS: CALCIUM 8.7 mg/dL (8.5-10.1); CREATININE 1.4 mg/dL (0.7-1.3); GFR 61.4; POTASSIUM 5.2 mmol/L (3.5-5.1)
[2021-02-19 19:10] LABS: ALBUMIN 3.2 g/dL (3.4-5.0); ALBUMIN/GLOBULIN RATIO 0.9 (1.0-1.7); TOTAL BILIRUBIN 0.4 mg/dL (0.2-1.0); TOTAL PROTEIN 6.8 g/dL (6.4-8.2)
[2021-02-19 19:27] LABS: ANISOCYTOSIS SLIGHT; PLT ESTIMATE ADEQUATE (ADEQUATE)
[2021-02-19 19:45] VITALS: BP 123/86
--- NOTE | 2021-02-20 05:34 | EKG ---
[address] [address] Test Date: 2021-02-19 Test Time: 19:26:10 Pat Name: ENRIQUE ISAAC Department: Room: Gender: M Wet Roller: : 1955 Requested By: ADE PRICE Order Number: [id number] Reading MD: Rich Renner Measurements Intervals [place] Rate: 69 P: MN: QRS: -26 QRSD: 66 T: 28 QT: 444 QTc: 477 Interpretive Statements ATRIAL FIBRILLATION LOW VOLTAGE T ABNORMALITY IN ANTERIOR LEADS PROLONGED QT ABNORMAL ECG Electronically Signed On 02-20-2021 7:56:02 TOBACCO STEMMER by Rich Renner
== END 2021-02-19 19:45 | disposition home or self-care (01) ==
LOC: ER 16:44
DX: R60.0 Localized edema (principal); I11.0 Hypertensive heart disease with heart failure; I50.9 Heart failure, unspecified; I48.91 Unspecified atrial fibrillation; I25.10 Atherosclerotic heart disease of native coronary artery without angina pectoris; F41.9 Anxiety disorder, unspecified; F32.9 Major depressive disorder, single episode, unspecified; E11.9 Type 2 diabetes mellitus without complications; E78.00 Pure hypercholesterolemia, unspecified; Z86.718 Personal history of other venous thrombosis and embolism
CPT/HCPCS: 36415; 71045; 80053; 83880; 84484; 85025; 93005; 99283

== ENCOUNTER 2021-04-26 14:55 | Emergency (ER) | payer MEDICARE ==
[~2021-04-26] VITALS: Ht 188 cm; Wt 153.0 kg
--- NOTE | 2021-04-26 15:52 | PHYS DOC ---
Past History Past Medical History: A-Fib, Anxiety, CAD, CHF, Depression, Diabetes, DVT, High Cholesterol, Heart Disease, Hypertension Additional Past Medical Histor: PE Past Surgical History: Other Additional Past Surgical Histo: Thrombectomy Smoking: Non-smoker Alcohol Use: Rarely Drug Use: None General Adult EDM: Chief Complaint: SKIN RASH/ABSCESS HPI: HPI: 65-year-old male presents with right lower leg wound. The patient has significant lower extremity edema. He had a wound on the anterior surface of the right lower leg that was treated by wound care. It has improved, but a new area developed medially to this and keeps expanding. It started out as a small blister-looking area and has expanded to be 5 cm across. It has nearly constant clear fluid drainage. No bleeding. He does not wear compression stockings. He takes one 40 mg Lasix a day. He denies shortness of breath, chest pain, or diaphoresis. He has no other complaints this time. Review of Systems: Review of Systems: Constitutional: Denies fever or chills Eyes: Denies change in visual acuity HENT: Denies nasal congestion or sore throat Respiratory: Denies cough or shortness of breath Cardiovascular: Bilateral lower extremity edema GI: Denies abdominal pain, nausea, vomiting, bloody stools or diarrhea : Denies dysuria Musculoskeletal: Denies back pain or joint pain Integument: open wound right lower leg Neurologic: Denies headache, focal weakness or sensory changes Endocrine: Denies polyuria or polydipsia Lymphatic: Denies swollen glands Psychiatric: Denies depression or anxiety Allergies: Allergies: Allergies Coded Allergies Type Severity Reaction Last Updated Verified No Known Drug Allergies 04/26/21 No Physical Exam: PE: Constitutional: Well developed, well nourished, no acute distress, non-toxic appearance. [] HENT: Normocephalic, atraumatic, bilateral external ears normal, oropharynx moist, no oral exudates, nose normal. [] Eyes: PERRLA, EOMI, conjunctiva normal, no discharge. [] Neck: Normal range of motion, no tenderness, supple, no stridor. [] Cardiovascular:Heart rate regular rhythm, no murmur [] Lungs & Thorax: Bilateral breath sounds clear to auscultation [] Abdomen: Bowel sounds normal, soft, no tenderness, no masses, no pulsatile masses. [] Skin: 5 cm open wound of the right medial lower leg, serous fluid leaking from the wound and surrounding skin [] Back: No tenderness, no CVA tenderness. [] Extremities: No tenderness, no cyanosis, no clubbing, ROM intact, 4+ pitting edema bilaterally [] Neurologic: Alert and oriented X 3, normal motor function, normal sensory function, no focal deficits noted. [] Psychologic: Affect normal, judgement normal, mood normal. [] EKG: EKG: [] Radiology/Procedures: Radiology/Procedures: [] Heart Score: C/O Chest Pain: N/A Risk Factors: Risk Factors: DM, Current or recent (<one month) smoker, HTN, HLP, family history of CAD, obesity. Risk Scores: Score 0 - 3: 2.5% MACE over next 6 weeks - Discharge Home Score 4 - 6: 20.3% MACE over next 6 weeks - Admit for Clinical Observation Score 7 - 10: 72.7% MACE over next 6 weeks - Early Invasive Strategies Course & Med Decision Making: Course & Med Decision Making Pertinent Labs and Imaging studies reviewed. (See chart for details) The patient's labs are significant for hemoglobin of 8.9. This is about 1-1/2 g down from the beginning of the year. He has had previous hemoglobins below 7 in the past. His proBNP is over 3000. His creatinine is normal. I will give the patient 40 mg of Lasix p.o. in the ER and advised that he increase his Lasix dose to twice a day for least a few days to help with his swelling. He will follow-up with his primary doctor to consider continuing an elevated dose or not. We have redressed his wound and he will follow up with wound care. There are no indications for antibiotics at this time. He is stable for discharge at this time. [] Dragon Disclaimer: Dragon Disclaimer: This electronic medical record was generated, in whole or in part, using a voice recognition dictation system. Departure Departure: Impression: Primary Impression: Wound of right leg Additional Impression: Bilateral lower extremity edema Disposition: HOME / SELF CARE / HOMELESS Condition: STABLE Referrals: ANU MARS (PCP) Patient Instructions: Edema, [id number], Wound Care, [id number] Scripts Furosemide (LASIX) 40 Mg Tablet 1 TAB PO DAILY for edema for 15 Days, #15 TAB 0 Refills These tablets are an additional dose daily of Lasix. Take 1 tab twice daily for 3 days then 1 tab daily and 1 tab twice daily every other day. Prov: IFEANYI HERNANDEZ DO 04/26/21 IFEANYI HERNANDEZ DO Apr 26, 2021 15:52
[2021-04-26 16:22] LABS: CALCIUM 8.8 mg/dL (8.5-10.1); CREATININE 0.9 mg/dL (0.7-1.3); GFR 102.2; POTASSIUM 5.3 mmol/L (3.5-5.1)
[2021-04-26 16:25] LABS: BASO # 0.2 x10^3/uL (0.0-0.2); BASO % 2 % (0-3); EOS # 0.1 x10^3/uL (0.0-0.7); EOS % 1 % (0-3); HEMATOCRIT 30.5 % (39.0-53.0); HEMOGLOBIN 8.9 g/dL (13.0-17.5); LYMPH # 3.9 x10^3/uL (1.0-4.8); LYMPH % 44 % (24-48); MEAN CORPUSCULAR HEMOGLOBIN 21 pg (25-35); MEAN CORPUSCULAR HGB CONC 29 g/dL (31-37); MEAN CORPUSCULAR VOLUME 73 fL (79-100); MONO # 0.5 x10^3/uL (0.0-1.1); MONO % 6 % (0-9); NEUT # 4.2 x10^3uL (1.8-7.7); NEUT % 47 % (31-73); PLATELET COUNT 373 x10^3/uL (140-400); RED BLOOD COUNT 4.19 x10^6/uL (4.30-5.70); RED CELL DISTRIBUTION WIDTH 24.7 % (11.5-14.5); WHITE BLOOD COUNT 8.9 x10^3/uL (4.0-11.0)
[2021-04-26 16:35] LABS: ALBUMIN 2.5 g/dL (3.4-5.0); ALBUMIN/GLOBULIN RATIO 0.6 (1.0-1.7); TOTAL BILIRUBIN 0.3 mg/dL (0.2-1.0); TOTAL PROTEIN 6.7 g/dL (6.4-8.2)
[2021-04-26 16:47] VITALS: BP 114/67
[2021-04-26] MEDS ORDERED: FURO-68 PO (17:08)
[2021-04-26 17:15] LABS: PLT ESTIMATE ADEQUATE (ADEQUATE)
[2021-04-26] MEDS ORDERED: FUROSEMIDE 40 MG TABLET PO ONE (17:15)
[2021-04-26 17:17] LABS: ANISOCYTOSIS MOD; MICROCYTOSIS SLIGHT; TARGET CELLS FEW
[2021-04-26 17:18] LABS: HYPOCHROMIA MOD
== END 2021-04-26 17:27 | disposition home or self-care (01) ==
LOC: ER 14:55
DX: S81.801A Unspecified open wound, right lower leg, initial encounter (principal); R60.0 Localized edema; I48.91 Unspecified atrial fibrillation; F41.9 Anxiety disorder, unspecified; I25.10 Atherosclerotic heart disease of native coronary artery without angina pectoris; I11.0 Hypertensive heart disease with heart failure; I50.9 Heart failure, unspecified; E11.9 Type 2 diabetes mellitus without complications; E78.00 Pure hypercholesterolemia, unspecified; Z86.718 Personal history of other venous thrombosis and embolism; X58.XXXA Exposure to other specified factors, initial encounter; Y93.89 Activity, other specified; Y92.89 Other specified places as the place of occurrence of the external cause; Y99.8 Other external cause status
CPT/HCPCS: 36415; 80053; 83880; 85025; 99282; 99283

== ENCOUNTER → 2021-05-30 | Outpatient (CLI) | payer MEDICARE ==
[~2021-05-30] MED LIST changes: +FURO-68 PO
--- NOTE | 2021-05-30 13:24 | RAD ---
EXAMINATION: US VENOUS REFLUX CLINICAL HISTORY: NONHEALING NONSURGICAL WOUND. Bilateral lower extremity edema. TECHNIQUE: Sonographic grayscale images obtained of the bilateral lower extremity venous systems with color Doppler and spectral waveform analysis. FINDINGS: Right saphenofemoral junction 7 mm. Reflux is absent. Proximal thigh right great saphenous vein 4 mm. Reflux is absent. Mid thigh right great saphenous vein 4 mm. Reflux is absent. Right saphenopopliteal junction 4 mm. Reflux is absent. Right small saphenous vein 2 mm. Reflux is absent. Left saphenofemoral junction 7 mm. Reflux is absent. Proximal thigh left great saphenous vein 4 mm. Reflux is absent. Mid thigh left great saphenous vein not assessed on available images. Right saphenopopliteal junction 4 mm. Reflux is absent. Left small saphenous vein 2 mm. Reflux is absent. DVT: absent. IMPRESSION: No evidence of significant venous reflux. Electronically signed by: Casimiro Alonso DO (05/30/2021 1:22 PM) [id number]
== END ==
LOC: US 08:01
PROVIDERS: ATTEND Internal Medicine Cardiovascular Disease
DX: T14.8XXA Other injury of unspecified body region, initial encounter (principal); R60.0 Localized edema; X58.XXXA Exposure to other specified factors, initial encounter; Y93.89 Activity, other specified; Y92.89 Other specified places as the place of occurrence of the external cause; Y99.8 Other external cause status
CPT/HCPCS: 93970

== ENCOUNTER 2021-06-30 11:11 | Emergency (ER) | payer MEDICARE ==
[~2021-06-30] VITALS: Ht 188 cm; Wt 153.0 kg
[2021-06-30 11:30] VITALS: BP 112/52
--- NOTE | 2021-06-30 12:22 | PHYS DOC ---
Past History Past Medical History: A-Fib, Anxiety, CAD, CHF, Depression, Diabetes, DVT, High Cholesterol, Heart Disease, Hypertension Additional Past Medical Histor: BLOOD CLOTS Past Surgical History: No Surgical History Additional Past Surgical Histo: Thrombectomy Smoking: Non-smoker Alcohol Use: None Drug Use: None General Adult EDM: Chief Complaint: WOUND CHECK HPI: HPI: Patient is a 65-year-old male who presents to the emergency department today for a right lower leg wound check. He suffers from chronic leg wounds and has edema and CHF. He reports that this new wound started 5 days ago as a blister and it popped this morning and he has had some clear watery drainage and some sloughing of the skin from the blister popping. Patient's reports that she had sci ssors at home and she is extracted to cut the excessive skin off and placed a dressing but her scissors did not appear clean to her so she did not want to provide wound care at home. Patient denies any increased leg swelling, fevers, vomiting, chest pain, shortness of breath. He had a negative ultrasound of his leg on May 30. Review of Systems: Review of Systems: Constitutional: See HPI Respiratory: See HPI Cardiovascular: See HPI Musculoskeletal: See HPI Integument: See HPI Allergies: Allergies: Allergies Coded Allergies Type Severity Reaction Last Updated Verified No Known Drug Allergies 04/26/21 No Physical Exam: PE: Constitutional: Well developed, well nourished, no acute distress, non-toxic appearance. [] HENT: Normocephalic, atraumatic, bilateral external ears normal, oropharynx moist, no oral exudates, nose normal. [] Eyes: PERRL, EOMI, conjunctiva normal, no discharge. [] Neck: Normal range of motion, no tenderness, supple, no stridor. [] Cardiovascular:Heart rate regular rhythm, no murmur, 4+ pitting edema noted to bilateral lower extremities, wound noted to anterior aspect of right lower leg with sloughing of skin and clear drainage, no signs of redness/warmth to surrounding skin, palpable but decreased pedal pulses due to edema [] Lungs & Thorax: Bilateral breath sounds clear to auscultation [] Abdomen: Bowel sounds normal, soft, no tenderness, no masses, no pulsatile ma sses. [] Skin: Warm, dry, no erythema, no rash. [] Back: No tenderness, normal range of motion Extremities: No tenderness, no cyanosis, no clubbing, ROM intact, no edema. [] Neurologic: Alert and oriented X 3, normal motor function, normal sensory function, no focal deficits noted. [] Psychologic: Affect normal, judgement normal, mood normal. [] Current Patient Data: Vital Signs: Vital Signs Date Time Temp Pulse Resp B/P (MAP) Pulse Ox O2 Delivery O2 Flow Rate FiO2 06/30/21 11:30 98.3 71 16 112/52 (72) 97 Room Air EKG: EKG: [] Radiology/Procedures: Radiology/Procedures: [] Heart Score: C/O Chest Pain: No Risk Factors: Risk Factors: DM, Current or recent (<one month) smoker, HTN, HLP, family history of CAD, obesity. Risk Scores: Score 0 - 3: 2.5% MACE over next 6 weeks - Discharge Home Score 4 - 6: 20.3% MACE over next 6 weeks - Admit for Clinical Observation Score 7 - 10: 72.7% MACE over next 6 weeks - Early Invasive Strategies Course & Med Decision Making: Course & Med Decision Making Pertinent Labs and Imaging studies reviewed. (See chart for details) [] Patient presents to the emergency department for wound check. Patient has a wound to his anterior aspect of his right lower leg. He reports that it was a blister that popped this morning and patient's cannot take care of of the blister does not have the supplies at home for wound care. Patient is currently on clindamycin started that yesterday by his primary care provider. He has an appointment with wound care at [facility] on July 08. Skin from wound was removed and a nonadherent dressing with Kerlix was placed. Patient was given supplies at home. He was advised to contact wound care tomorrow to set up a follow-up appointment earlier than the . I discussed with patient all findings and diagnostic testing as well as the need to follow-up with PCP for further evaluation and treatment or return to the ER if any new or worsening symptoms. Strict return precautions were also discussed at length. Patient voiced understanding and agreement with the plan. Patient is hemodynamically stable at the time of disposition. Ethan Disclaimer: Ethan Disclaimer: This electronic medical record was generated, in whole or in part, using a voice recognition dictation system. Departure Departure: Impression: Primary Impression: Wound of lower extremity Qualified Codes: S81.801A - Unspecified open wound, right lower leg, initial encounter Disposition: HOME / SELF CARE / HOMELESS Condition: GOOD Referrals: ANU MARS (PCP) Patient Instructions: Wound Care, [id number], Wound Check Additional Instructions: You are seen in the emergency department for wound check. The excessive skin was removed and a dressing was placed. Please change this dressing as previously directed by wound care. Please contact wound care tomorrow morning to set up a follow-up appointment sooner than July 08. Continue taking the antibiotic as prescribed. Return to the emergency department if you develop worsening of the swelling in your legs, chest pain, shortness of breath, high fevers refractory to treatment, redness/warmth or increased drainage noted to your wound site. ADE PRICE SAFETY EQUIPMENT TESTER June 30, 2021 12:22
== END 2021-06-30 12:55 | disposition home or self-care (01) ==
LOC: ER 11:11
DX: S81.801A Unspecified open wound, right lower leg, initial encounter (principal); I48.91 Unspecified atrial fibrillation; I25.10 Atherosclerotic heart disease of native coronary artery without angina pectoris; I11.0 Hypertensive heart disease with heart failure; I50.9 Heart failure, unspecified; E11.9 Type 2 diabetes mellitus without complications; E78.00 Pure hypercholesterolemia, unspecified; Z86.718 Personal history of other venous thrombosis and embolism; X58.XXXA Exposure to other specified factors, initial encounter; Y93.89 Activity, other specified; Y92.89 Other specified places as the place of occurrence of the external cause; Y99.8 Other external cause status
CPT/HCPCS: 99281; 99282